=== PATIENT | female | born 1990 | race Caucasian/White ===

== ENCOUNTER 2017-02-04 12:19 | Inpatient (IN) | payer OTHER ==
[~2017-02-04] VITALS: Ht 165.1 cm; Wt 65.0 kg
[~2017-02-04 12:19] MED LIST: MELO7.5T5 PO; PAROXETINE PO
[2017-02-04] MEDS ORDERED: SODIUM CHLORIDE 0.9% 1000ML 1,000 ML IV STA ×2 (12:27)
[2017-02-04] MEDS ORDERED: ONDANSETRON INJ 2 MG/ML 2 ML VIAL IV STA ×2 (12:27→14:37)
[2017-02-04] MEDS ORDERED: KETOROLAC TROMETHAMINE 30 MG/ML VIAL IV STA (12:30)
[2017-02-04] MEDS ORDERED: RIZA5TAB10 PO (12:33)
[2017-02-04] MEDS ORDERED: AMT25 PO (12:33)
--- NOTE | 2017-02-04 12:44 | EMERGENCY ROOM VISIT NOTE ---
History Report prepared by Peter: Jing Bahena Under the Supervision of: Dr. Marivel Garcia M.D. First contact with patient: 12:26 Chief Complaint: VOMITING Stated Complaint: VOMITING History of Present Illness The patient is a 26 year old female who presents to the Emergency Room with complaints of constant vomiting beginning 24 hours ago. The patient states that she has been vomiting since yesterday. She reports that she had a crippling sharp abdominal pain yesterday before starting to vomit. She notes that her vomit is yellow with black bits in it and she has not been able to keep any food or liquids down. The patient complains of diarrhea, chills and diaphoresis. She denies any known fever, blood in the stool, and hematemesis. The patient states that no one around her has been sick but her mom works at a day care. She reports that she has a history of migraines and she does not think that there is a chance of . Source of History: patient Onset: 24 hours ago Position: other (global) Quality: other (vomiting) Timing: constant Associated Symptoms: + chills, + diaphoresis, + nausea, + diarrhea, No fevers Note: Pt denies blood in stool or vomit. Review of Systems See HPI for pertinent positives & negatives. A total of 10 systems reviewed and were otherwise negative. Past Medical & Surgical Medical Problems: (1) Ankylosing spondylitis lumbar region (2) No Known Active Medical Problems Family History Diabetes mellitus Heart disease Hypertension Social History Smoking Status: Never Smoker Smokeless Tobacco Use: No Drug Use: none Marital Status: single Occupation Status: employed Current/Historical Medications Scheduled Amitriptyline HCl (Amitriptyline HCl), 25 MG PO DAILY Scheduled PRN Rizatriptan Benzoate (Maxalt), 5 MG PO DAILY PRN for Migraine Allergies Coded Allergies: No Known Allergies (Unverified , 02/04/17) Physical Exam Vital Signs Date Time Temp Pulse Resp B/P (MAP) Pulse Ox O2 Delivery O2 Flow Rate FiO2 02/04/17 14:59 118 14 116/76 99 Room Air 02/04/17 13:38 98 20 107/79 98 Room Air 02/04/17 13:00 102 18 120/85 98 Room Air 02/04/17 12:58 108 02/04/17 12:21 36.9 131 20 128/80 94 Room Air 02/03/17 23:08 Room Air Physical Exam Vital signs reviewed. General: Well-appearing, in no significant distress. HEENT: No scleral icterus, PERRLA, neck supple. Atraumatic. Dry mucous membranes. Cardiovascular: Regular rate and rhythm, no extra sounds. Pulmonary: Clear to auscultation bilaterally, normal work of breathing. Abdomen: Soft, diffuse abdominal tenderness, no rebound or guarding, nondistended, positive bowel sounds. Musculoskeletal: Atraumatic, no peripheral edema. Neurologic: Patient awake alert and oriented x 3, full strength in all 4 extremities. Cranial nerves 2 through 12 grossly intact. Skin: Warm, dry, no rash Medical Decision & Procedures ER Provider Diagnostic Interpretation: Radiology results as stated below per my review and radiologist interpretation: PA CHEST RADIOGRAPH AND UPRIGHT AND SUPINE AP RADIOGRAPHS OF THE ABDOMEN FINDINGS: Lung volumes are normal. There is no consolidation to suggest pneumonia. No pneumothorax or pleural effusion is present. Cardiac size is normal. Mediastinal contours are normal. There is no free air. Several loops of mildly dilated small bowel are noted. There is possible small bowel wall thickening which is difficult to assess by radiography. IMPRESSION: 1. A few loops of mildly dilated small bowel with possible small bowel wall thickening which is difficult to assess by radiography. The findings could reflect a partial small bowel obstruction or enteritis. 2. No free air. 3. No acute cardiopulmonary findings. Electronically signed by: Eliseo Posadas M.D. 02/04/2017 1:41 PM Dictated Date/Time: 02/04/2017 1:[address] OF THE ABDOMEN AND PELVIS WITH CONTRAST FINDINGS: No pneumatosis, free air or portal venous gas is present. The liver, spleen, adrenal glands, right kidney and pancreas are normal. An 8 mm hypodense lesion within the midpole of the left kidney is too small to characterize. There is no biliary or pancreatic ductal dilatation. There is no hydronephrosis or hydroureter. No is made of multiple loops of fluid-filled mildly dilated small bowel with apparent transition point within the lower mid abdomen shown on image 284 of [id number] with small bowel feces sign. There is associated mesenteric infiltration and a small to moderate amount of ascites within the pelvis. Apparent wall thickening of the proximal ileum is noted which may reflect a nonspecific enteritis. Distal small bowel is decompressed. The appendix is normal. There are numerous small abdominal and pelvic lymph nodes. No enlarged lymph nodes are present. There is a 2 cm dominant follicle within the left ovary. Irregularity of the bilateral sacroiliac joints suggesting sacroiliitis. IMPRESSION: 1. Moderate grade partial small bowel obstruction with transition point within the lower mid abdomen, within the proximal ileum. The bowel obstruction could be due to a nonspecific enteritis which could be inflammatory or infectious in etiology. Possible terminal ileal wall thickening. The findings raise the possibility of an etiology such as Crohn's disease. Associated mesenteric infiltration and small to moderate pelvic ascites. 2. Findings suggestive of bilateral sacroiliitis. Electronically signed by: Eliseo Posadas M.D. 02/04/2017 3:05 PM Dictated Date/Time: 02/04/2017 2:49 PM Laboratory Results Test 02/04/17 12:50 Total Bilirubin 0.8 mg/dl (0.2-1) Direct Bilirubin 0.2 mg/dl (0-0.2) Aspartate Amino Transf (AST/SGOT) 12 U/L (15-37) Alanine Aminotransferase (ALT/SGPT) 29 U/L (12-78) Alkaline Phosphatase 75 U/L (45-117) Total Protein 9.0 gm/dl (6.4-8.2) Albumin 4.7 gm/dl (3.4-5.0) Lipase 84 U/L (73-393) Human Chorionic Gonadotropin, Qual NEG (NEG) Laboratory results per my review. Medications Administered Medications (Trade) Dose Ordered Sig/Alon Route Start Time Stop Time Status Last Admin Dose Admin Sodium Chloride 1,000 ml @ 999 mls/hr Q1H1M STAT IV 02/04/17 12:27 02/04/17 13:27 DC 02/04/17 13:04 999 MLS/HR Sodium Chloride 1,000 ml @ 200 mls/hr Q5H STAT IV 02/04/17 12:27 02/04/17 17:10 DC 02/04/17 13:04 200 MLS/HR Ondansetron HCl (Zofran Inj) 4 mg NOW STAT IV 02/04/17 12:27 02/04/17 12:29 DC 02/04/17 13:03 4 MG Ketorolac Tromethamine (Toradol Inj) 30 mg NOW STAT IV 02/04/17 12:30 02/04/17 12:31 DC 02/04/17 13:03 30 MG Morphine Sulfate (MoRPHine SULFATE INJ) 4 mg NOW STAT IV 02/04/17 14:37 02/04/17 14:38 DC 02/04/17 14:57 4 MG Ondansetron HCl (Zofran Inj) 4 mg NOW STAT IV 02/04/17 14:37 02/04/17 14:38 DC 02/04/17 14:56 4 MG ED Course 1226: Past medical records reviewed. The patient was evaluated in room C12B. A complete history and physical examination was performed. 1227: Zofran Inj 4mg IV, Sodium Chloride 1000 ml @ 200 mls/hr IV, Sodium Chloride 1000 ml @ 999 mls/hr IV. 1230: Toradol Inj 30mg IV. 1433: I reevaluated and updated the patient. She is having more nausea and pain. 1437: Zofran Inj 4mg IV, Morphine Sulfate 4mg IV. 1517: I reevaluated and updated the patient. 1519: I reviewed the patient's case with [place]bar[place] [facility] [place] will evaluate the patient for further management. 1536: Upon reevaluation, the patient is resting comfortably. I discussed laboratory and radiographic results with the patient. She verbalized agreement of the treatment plan. I spoke with [place]. Ibarra of the [facility] [place] [facility]. The patient will be evaluated for further management and care. Medical Decision Differential diagnosis: Etiologies such as gastroenteritis, food borne illness, infections, appendicitis , diverticulitis, inflammatory bowel disease, obstruction, GI bleed, biliary pathology, as well as others were entertained. Medication Reconciliation: I attest that I have personally reviewed the patient' s current medication list. This patient was evaluated and appeared to be in no significant distress. IV access was obtained and laboratory work was drawn. The patient was hydrated with normal saline solution. She was given IV Zofran and Toradol. Patient did require IV morphine for her pain. Abdominal x-ray series is concerning for a possible SBO. CT scan abdomen and pelvis was performed and is read as above. There is concerning for bowel obstruction. I did explain my findings to the patient and plan for evaluation by the hospitalist service. She is aware and agrees. Consults Time Called: 1513 Consulting Physician: Dr. Ibarra [place] [facility] Returned Call: [phone] I reviewed the patient's case with [place]. Ibar[place] of [facility] He will evaluate the patient for further management. Impression Primary Impression: Partial small bowel obstruction Scribe Attestation The scribe's documentation has been prepared under my direction and personally reviewed by me in its entirety. I confirm that the note above accurately reflects all work, treatment, procedures, and medical decision making performed by me. Departure Information Dispostion Being Evaluated By Hospitalist Referrals Wally Redman M.D. (PCP) Patient Instructions My [facility]
[2017-02-04 13:03] LABS: BASO % 0.1 %; BASO ABS # 0.01 K/uL (0-0.2); COMPLETE YES; IG% 0.2 %; LYMPH % 5.9 %; LYMPH ABS # 0.94 K/uL (1.2-3.4); MEAN CELL VOLUME 82.6 fL (80-100); MEAN CORPUSCULAR HEMOGLOBIN 28.3 pg (25-34); MEAN CORPUSCULAR HGB CONC 34.3 g/dl (32-36); MEAN PLATELET VOLUME 9.1 fL (7.4-10.4); MONO % 3.2 %; NEUT % 90.6 %; PLATELET COUNT 337 K/uL (130-400); RED BLOOD COUNT 5.33 M/uL (4.2-5.4); WHITE BLOOD COUNT 15.96 K/uL (4.8-10.8)
[2017-02-04 13:20] LABS: PREG INTERNAL NEGATIVE QC NEG CLEAR BACKGROUND; PREG INTERNAL POSITIVE QC POS CONTROL LINE
[2017-02-04 13:31] LABS: BUN/CREATININE RATIO 17.1 (10-20); CALCIUM 9.8 mg/dl (8.5-10.1); CREATININE 0.78 mg/dl (0.60-1.20); POTASSIUM 3.9 mmol/L (3.5-5.1)
--- NOTE | 2017-02-04 13:42 | DIAGNOSTIC IMAGING REPORT ---
PA CHEST RADIOGRAPH AND UPRIGHT AND SUPINE AP RADIOGRAPHS OF THE ABDOMEN CLINICAL HISTORY: Vomiting and abdominal pain. COMPARISON STUDY: Chest radiograph September 06, 2014. FINDINGS: Lung volumes are normal. There is no consolidation to suggest pneumonia. No pneumothorax or pleural effusion is present. Cardiac size is normal. Mediastinal contours are normal. There is no free air. Several loops of mildly dilated small bowel are noted. There is possible small bowel wall thickening which is difficult to assess by radiography. IMPRESSION: 1. A few loops of mildly dilated small bowel with possible small bowel wall thickening which is difficult to assess by radiography. The findings could reflect a partial small bowel obstruction or enteritis. 2. No free air. 3. No acute cardiopulmonary findings. Electronically signed by: Eliseo Posadas M.D. 02/04/2017 1:41 PM Dictated Date/Time: 02/04/2017 1:37 PM
[2017-02-04] MEDS ORDERED: OPTIRAY 320 IV PRN (14:15)
[2017-02-04] MEDS ORDERED: MoRPHine SULFATE 4 MG/ML 1 ML CARP\\VIAL IV STA (14:37)
--- NOTE | 2017-02-04 15:06 | DIAGNOSTIC IMAGING REPORT ---
CT OF THE ABDOMEN AND PELVIS WITH CONTRAST CLINICAL HISTORY: Vomiting and abdominal pain. COMPARISON STUDY: Abdominal series performed earlier today. TECHNIQUE: Following IV administration of 94 mL of [id number], axial images of the abdomen and pelvis were obtained from the lung bases to the proximal femurs. Images were reviewed in the axial, sagittal, and coronal planes. IV contrast was administered without complication. CT DOSE: 307.89 mGy.cm FINDINGS: No pneumatosis, free air or portal venous gas is present. The liver, spleen, adrenal glands, right kidney and pancreas are normal. An 8 mm hypodense lesion within the midpole of the left kidney is too small to characterize. There is no biliary or pancreatic ductal dilatation. There is no hydronephrosis or hydroureter. No is made of multiple loops of fluid-filled mildly dilated small bowel with apparent transition point within the lower mid abdomen shown on image 284 of 486 with small bowel feces sign. There is associated mesenteric infiltration and a small to moderate amount of ascites within the pelvis. Apparent wall thickening of the proximal ileum is noted which may reflect a nonspecific enteritis. Distal small bowel is decompressed. The appendix is normal. There are numerous small abdominal and pelvic lymph nodes. No enlarged lymph nodes are present. There is a 2 cm dominant follicle within the left ovary. Irregularity of the bilateral sacroiliac joints suggesting sacroiliitis. IMPRESSION: 1. Moderate grade partial small bowel obstruction with transition point within the lower mid abdomen, within the proximal ileum. The bowel obstruction could be due to a nonspecific enteritis which could be inflammatory or infectious in etiology. Possible terminal ileal wall thickening. The findings raise the possibility of an etiology such as Crohn's disease. Associated mesenteric infiltration and small to moderate pelvic ascites. 2. Findings suggestive of bilateral sacroiliitis. Electronically signed by: Eliseo Posadas M.D. 02/04/2017 3:05 PM Dictated Date/Time: 02/04/2017 2:49 PM
[2017-02-04] MEDS ORDERED: MoRPHine SULFATE 2 MG/ML CARP IV PRN (16:00)
[2017-02-04] MEDS ORDERED: RIZATRIPTAN BENZOATE 10 MG TAB PO PRN (16:00)
[2017-02-04] MEDS ORDERED: KETOROLAC TROMETHAMINE 30 MG/ML VIAL IV PRN (16:00)
[2017-02-04] MEDS ORDERED: ZOLPIDEM TARTRATE 5 MG TAB PO PRN (16:00)
[2017-02-04] MEDS ORDERED: ACETAMINOPHEN IV 100 ML IV PRN (16:00)
[2017-02-04] MEDS ORDERED: ACETAMINOPHEN 325 MG TAB PO PRN (16:00)
[2017-02-04 16:32] VITALS: O2SAT 97
[2017-02-04 16:56] VITALS: BP 114/70; PULSE 126; TEMP 37.1; Ht 165.1 cm; Wt 65.0 kg
[2017-02-04] MEDS ORDERED: PIPERACILL/TAZOBAC CONSULT ACTIVE PRN (17:30)
[2017-02-04] MEDS ORDERED: PIPERACILL/TAZOBAC IV 3.375 GM in DEXTROSE 5% 100ML IV ONE (17:30)
[2017-02-04] MEDS: NSS + 20MEQ KCL 1000ML 1,000 ML IV SCH (17:39)
[2017-02-04] MEDS ORDERED: PIPERACILL/TAZOBAC IV 3.375 GM in DEXTROSE 5% 100ML 100 ML IV SCH (18:00)
[2017-02-04] MEDS: RANITIDINE IV 50 MG in DEXTROSE 5% 100ML 100 ML IV SCH (18:45)
[2017-02-04] MEDS: ONDANSETRON INJ 2 MG/ML 2 ML VIAL IV PRN (18:46)
[2017-02-04] MEDS: MoRPHine SULFATE 4 MG/ML 1 ML CARP\\VIAL IV PRN (18:56)
--- NOTE | 2017-02-04 20:32 | History and Physical ---
History & Physical Date & Time of Service: Feb 04, 2017 at 20:21 Chief Complaint: Ankylosing Spondylitits Lumbar Region Primary Care Physician: Wally Redman M.D. History of Present Illness Source: patient The patient is a 26-year-old female who presents to the emergency department with persistent abdominal pain and vomiting that began about 24 hours prior to arrival. She is also had diarrhea, chills and sweats. She denies any recent travel or sick exposures. She has had symptoms off and on since she was young. She does have chronic low back pain. Family History Diabetes mellitus Heart disease Hypertension Social History Smoking Status: Never Smoker Smokeless Tobacco Use: No Alcohol Use: none Drug Use: none Marital Status: single Occupational Status: employed Allergies Coded Allergies: No Known Allergies (Unverified , 02/04/17) Home Medications Scheduled Amitriptyline HCl (Amitriptyline HCl), 25 MG PO DAILY Scheduled PRN Rizatriptan Benzoate (Maxalt), 5 MG PO DAILY PRN for Migraine Review of Systems The patient denies chest pain, palpitations, shortness of breath, cough, lower extremity swelling, vision change, hearing change, sore throat, weight change, blood in urine or stool, dysuria, urinary frequency or urgency, lightheadedness , dizziness, headache, memory loss, rash, abnormal bruising or bleeding, imbalance, focal or generalized weakness, numbness or tingling in arms or legs, neck pain, night sweats, or allergy symptoms. The review of systems is otherwise negative other than for that already noted above, and at least 10 systems have been reviewed. Physical Exam Vital Signs Date Time Temp Pulse Resp B/P (MAP) Pulse Ox O2 Delivery O2 Flow Rate FiO2 02/04/17 16:56 37.1 126 16 114/70 Room Air 02/04/17 16:40 Room Air 02/04/17 16:32 113 18 112/68 97 02/04/17 14:59 118 14 116/76 99 Room Air 02/04/17 13:38 98 20 107/79 98 Room Air 02/04/17 13:00 102 18 120/85 98 Room Air 02/04/17 12:58 108 02/04/17 12:21 36.9 131 20 128/80 94 Room Air The patient is awake, well-developed and adequately nourished, alert and oriented 3, normocephalic and atraumatic, lying in bed and in no acute distress. HEENT--PERRL, EOMI, mucous membranes and oropharynx dry. Neck--supple, no JVD or bruits, thyroid normal, trachea midline, no adenopathy. Heart--normal S1 and S2, no extra beats, no murmurs, rubs or gallops. Lungs--clear bilaterally with good air movement, no respiratory distress, no accessory muscle use. Abdomen--decreased bowel sounds and soft, generalized mild tenderness, nondistended, no hernias or masses, no organomegaly. Extremities--no cyanosis, clubbing or edema. There are good distal pulses b/l. Dermatologic--normal skin turgor, normal color, warm and dry, no abnormal lymph nodes, no rash. Neurologic--cranial nerves II through XII grossly intact, motor and sensory examination normal. Rheumatologic--normal range of motion, nontender, muscles and joints. Psychiatric--normal affect. Diagnostics Laboratory Results Results Past 24 Hours Test 02/04/17 12:50 02/04/17 18:45 Range/Units White Blood Count 15.96 4.8-10.8 K/uL Red Blood Count 5.33 4.2-5.4 M/uL Hemoglobin 15.1 12.0-16.0 g/dL Hematocrit 44.0 37-47 % Mean Corpuscular Volume 82.6 80-100 fL Mean Corpuscular Hemoglobin 28.3 25-34 pg Mean Corpuscular Hemoglobin Concent 34.3 32-36 g/dl Platelet Count 337 130-400 K/uL Mean Platelet Volume 9.1 7.4-10.4 fL Neutrophils (%) (Auto) 90.6 % Lymphocytes (%) (Auto) 5.9 % Monocytes (%) (Auto) 3.2 % Eosinophils (%) (Auto) 0.0 % Basophils (%) (Auto) 0.1 % Neutrophils # (Auto) 14.47 1.4-6.5 K/uL Lymphocytes # (Auto) 0.94 1.2-3.4 K/uL Monocytes # (Auto) 0.51 0.11-0.59 K/uL Eosinophils # (Auto) 0.00 0-0.5 K/uL Basophils # (Auto) 0.01 0-0.2 K/uL RDW Standard Deviation 38.6 36.4-46.3 fL RDW Coefficient of Variation 12.8 11.5-14.5 % Immature Granulocyte % (Auto) 0.2 % Immature Granulocyte # (Auto) 0.03 0.00-0.02 K/uL Sodium Level 141 136-145 mmol/L Potassium Level 3.9 3.5-5.1 mmol/L Chloride Level 105 98-107 mmol/L Carbon Dioxide Level 27 21-32 mmol/L Anion Gap 9.0 3-11 mmol/L Blood Urea Nitrogen 13 7-18 mg/dl Creatinine 0.78 0.60-1.20 mg/dl Est Creatinine Clear Calc Drug Dose 100.1 ml/min Estimated GFR () 123.3 Estimated GFR (Non- 106.4 BUN/Creatinine Ratio 17.1 10-20 Random Glucose 124 70-99 mg/dl Calcium Level 9.8 8.5-10.1 mg/dl Total Bilirubin 0.8 0.2-1 mg/dl Direct Bilirubin 0.2 0-0.2 mg/dl Aspartate Amino Transf (AST/SGOT) 12 15-37 U/L Alanine Aminotransferase (ALT/SGPT) 29 12-78 U/L Alkaline Phosphatase 75 45-117 U/L Total Protein 9.0 6.4-8.2 gm/dl Albumin 4.7 3.4-5.0 gm/dl Lipase 84 73-393 U/L Human Chorionic Gonadotropin, Qual NEG NEG Diagnostic Radiology Patient Name: SAÚL MENDIETA Unit Number: [id number] Dictated: 02/04/171336 Transcribed: 02/04/171336 BOB Printed Date/Time: [~ rep prt dt]/[~ rep prt tm] [~ rep ct labl] - [~ rep ct ivnm] [facility] [place] [address] Dictated: 02/04/171336 Transcribed: 02/04/171336 BOB Printed Date/Time: [~ rep prt dt]/[~ rep prt tm] [~ rep ct labl] - [~ rep ct ivnm] [~ rep ct add3]] PA CHEST RADIOGRAPH AND UPRIGHT AND SUPINE AP RADIOGRAPHS OF THE ABDOMEN CLINICAL HISTORY: Vomiting and abdominal pain. COMPARISON STUDY: Chest radiograph September 06, 2014. FINDINGS: Lung volumes are normal. There is no consolidation to suggest pneumonia. No pneumothorax or pleural effusion is present. Cardiac size is normal. Mediastinal contours are normal. There is no free air. Several loops of mildly dilated small bowel are noted. There is possible small bowel wall thickening which is difficult to assess by radiography. IMPRESSION: 1. A few loops of mildly dilated small bowel with possible small bowel wall thickening which is difficult to assess by radiography. The findings could reflect a partial small bowel obstruction or enteritis. 2. No free air. 3. No acute cardiopulmonary findings. Electronically signed by: Eliseo Posadas M.D. 02/04/2017 1:41 PM Dictated Date/Time: 02/04/2017 1:37 PM The status of this report is Signed. Draft = Not yet reviewed or approved by Radiologist. Signed = Reviewed and approved by Radiologist. <AttendingPhy></AttendingPhy> <FamilyPhy>Wally Redman M.D.</FamilyPhy > <PrimaryPhy>Wally Redman M.D.</PrimaryPhy> <UnitNumber>[id number]</ UnitNumber> <VisitNumber>[id number]</VisitNumber> <PatientName>SAÚL MENDIETA</ PatientName> <DateOfBirth>1990</DateOfBirth> <Location>[facility]</Location> < ServiceDate>02/04/17</ServiceDate> <MNE>ESINDI</MNE> <OrderingPhy>Marivel Gacria M.D.</OrderingPhy> <OrderingPhyMNE>f rep ord dr soto</OrderingPhyMNE> < DictatingPhyMNE>f rep dict dr soto</DictatingPhyMNE> <CCListMNE>f rep ct charles</ CCListMNE> <AdmittingPhyMNE>f pt admit dr soto</AdmittingPhyMNE> <AttendingPhyMNE >f pt attend dr soto</AttendingPhyMNE> <ConsultingPhyMNE>f pt consult dr soto</ConsultingPhyMNE> <FamilyPhyMNE>f pt fam dr soto</FamilyPhyMNE> <OtherPhyMNE>f pt other dr soto</OtherPhyMNE> < PrimaryPhyMNE>f pt prim care dr soto</PrimaryPhyMNE> <ReferringPhyMNE>f pt referring dr soto</ReferringPhyMNE> Patient Name: SAÚL MENDIETA Unit Number: [id number] Dictated: 02/04/171448 Transcribed: 02/04/171448 JA Printed Date/Time: [~ rep prt dt]/[~ rep prt tm] [~ rep ct labl] - [~ rep ct ivnm] [facility] Radiology Department [place], [place] [id number] Dictated: 02/04/171448 Transcribed: 02/04/171448 JA Printed Date/Time: [~ rep prt dt]/[~ rep prt tm] [~ rep ct labl] - [~ rep ct ivnm] CT OF THE ABDOMEN AND PELVIS WITH CONTRAST CLINICAL HISTORY: Vomiting and abdominal pain. COMPARISON STUDY: Abdominal series performed earlier today. TECHNIQUE: Following IV administration of 94 mL of [id number], axial images of the abdomen and pelvis were obtained from the lung bases to the proximal femurs. Images were reviewed in the axial, sagittal, and coronal planes. IV contrast was administered without complication. CT DOSE: 307.89 mGy.cm FINDINGS: No pneumatosis, free air or portal venous gas is present. The liver, spleen, adrenal glands, right kidney and pancreas are normal. An 8 mm hypodense lesion within the midpole of the left kidney is too small to characterize. There is no biliary or pancreatic ductal dilatation. There is no hydronephrosis or hydroureter. No is made of multiple loops of fluid-filled mildly dilated small bowel with apparent transition point within the lower mid abdomen shown on image 284 of 486 with small bowel feces sign. There is associated mesenteric infiltration and a small to moderate amount of ascites within the pelvis. Apparent wall thickening of the proximal ileum is noted which may reflect a nonspecific enteritis. Distal small bowel is decompressed. The appendix is normal. There are numerous small abdominal and pelvic lymph nodes. No enlarged lymph nodes are present. There is a 2 cm dominant follicle within the left ovary. Irregularity of the bilateral sacroiliac joints suggesting sacroiliitis. IMPRESSION: 1. Moderate grade partial small bowel obstruction with transition point within the lower mid abdomen, within the proximal ileum. The bowel obstruction could be due to a nonspecific enteritis which could be inflammatory or infectious in etiology. Possible terminal ileal wall thickening. The findings raise the possibility of an etiology such as Crohn's disease. Associated mesenteric infiltration and small to moderate pelvic ascites. 2. Findings suggestive of bilateral sacroiliitis. Electronically signed by: Eliseo Posadas M.D. 02/04/2017 3:05 PM Dictated Date/Time: 02/04/2017 2:49 PM The status of this report is Signed. Draft = Not yet reviewed or approved by Radiologist. Signed = Reviewed and approved by Radiologist. <AttendingPhy></AttendingPhy> <FamilyPhy>Wally Rdeman M.D.</FamilyPhy > <PrimaryPhy>Wally Redman M.D.</PrimaryPhy> <UnitNumber>[id number]</ UnitNumber> <VisitNumber>[id number]</VisitNumber> <PatientName>SAÚL MENDIETA</ PatientName> <DateOfBirth>1990</DateOfBirth> <Location>[facility]</Location> < ServiceDate>02/04/17</ServiceDate> <MNE>ESINDI</MNE> <OrderingPhy>Marivel Garcia M.D.</OrderingPhy> <OrderingPhyMNE>f rep ord dr soto</OrderingPhyMNE> < DictatingPhyMNE>f rep dict dr soto</DictatingPhyMNE> <CCListMNE>f rep ct charles</ CCListMNE> <AdmittingPhyMNE>f pt admit dr soto</AdmittingPhyMNE> <AttendingPhyMNE >f pt attend dr soto</AttendingPhyMNE> <ConsultingPhyMNE>f pt consult dr soto</ConsultingPhyMNE> <FamilyPhyMNE>f pt fam dr soto</FamilyPhyMNE> <OtherPhyMNE>f pt other dr soto</OtherPhyMNE> < PrimaryPhyMNE>f pt prim care dr soto</PrimaryPhyMNE> <ReferringPhyMNE>f pt referring dr soto</ReferringPhyMNE> Impression Assessment and Plan Partial small bowel obstruction/enteritis/possible Crohn's--patient be admitted to the medical surgical floor. She'll be placed on full liquid diet, normal saline with potassium chloride 20 mEq at 100 mils per hour, Zofran 4 mg IV every 6 hours when necessary, Protonix 40 mg IV daily, Toradol 30 mg IV every 6 hours when necessary, and morphine sulfate 2-4 mg IV every 2 hours when necessary. We'll consult gastroenterology Dr. Aggarwal. Ankylosing spondylitis--her CT did show active bilateral sacroiliitis, and she reports that she does have active generalized arthritis occurring when she's had intermittent bowel issues in the past. She has been seen by rheumatology in the past, but the doctor no longer in the area. We'll consult Dr. Ni from rheumatology. The patient has been on a number of different anti- inflammatories in the past without much benefit. She may be a candidate for Biologics, which would if started need to be coordinated with a possible Crohn' s diagnosis. Level of Care Med/Surg Advanced Directives Existing Advance Directive: No Existing Living Will: No Existing Power of Cost Recorder: No Resuscitation Status FULL RESUSCITATION VTE Prophylaxis VTE Risk Assessment Done? Y/N: Yes Risk Level: Moderate Given or contraindicated: SCD's Social Service Consult None Apply
[2017-02-04 20:33] LABS: MANUAL MICROSCOPIC REQUIRED? YES; URINE APPEARANCE CLEAR (CLEAR); URINE COLOR YELLOW; URINE NITRITE NEG (NEG); URINE PH 5.5 (4.5-7.5); URINE SPECIFIC GRAVITY 1.015 (1.000-1.030); UROBILINOGEN NEG (NEG)
[2017-02-04 20:36] LABS: REVIEW REQ? NO
[2017-02-04 20:39] LABS: URINE BILIRUBIN NEG (NEG)
[2017-02-04 20:43] LABS: URINE BACTERIA NEG (NEG); URINE RBC 0-4 /hpf (0-4); ZZUR CULT IF INDIC CLEAN CATCH NO
[2017-02-04] MEDS: PIPERACILL/TAZOBAC IV 3.375 GM in DEXTROSE 5% 100ML IV SCH (23:18)
[2017-02-04 23:21] VITALS: BP 111/64; PULSE 95; TEMP 36.8; O2SAT 98
[2017-02-05] MEDS: RANITIDINE IV 50 MG in DEXTROSE 5% 100ML 100 ML IV SCH ×3 (02:07→18:08)
[2017-02-05] MEDS: NSS + 20MEQ KCL 1000ML 1,000 ML IV SCH ×3 (02:08→23:42)
[2017-02-05] MEDS: MoRPHine SULFATE 4 MG/ML 1 ML CARP\\VIAL IV PRN ×7 (04:08→23:49)
[2017-02-05] MEDS: PIPERACILL/TAZOBAC IV 3.375 GM in DEXTROSE 5% 100ML IV SCH ×3 (07:31→23:46)
[2017-02-05 07:55] VITALS: BP 108/72; PULSE 83; TEMP 36.8; O2SAT 100
[2017-02-05 08:01] LABS: BASO % 0.3 %; BASO ABS # 0.03 K/uL (0-0.2); COMPLETE YES; EOS % 1.7 %; HEMATOCRIT 34.3 % (37-47); IG% 0.3 %; LYMPH % 25.3 %; LYMPH ABS # 2.37 K/uL (1.2-3.4); MEAN CELL VOLUME 84.3 fL (80-100); MEAN CORPUSCULAR HGB CONC 32.1 g/dl (32-36); MEAN PLATELET VOLUME 9.3 fL (7.4-10.4); MONO % 9.2 %; NEUT % 63.2 %; PLATELET COUNT 228 K/uL (130-400); RED BLOOD COUNT 4.07 M/uL (4.2-5.4); WHITE BLOOD COUNT 9.38 K/uL (4.8-10.8)
[2017-02-05 08:11] LABS: BLOOD UREA NITROGEN 9 mg/dl (7-18); CALCIUM 7.8 mg/dl (8.5-10.1); CARBON DIOXIDE 25 mmol/L (21-32); CHLORIDE 113 mmol/L (98-107); CREATININE 0.55 mg/dl (0.60-1.20); GLUCOSE 93 mg/dl (70-99); MAGNESIUM 2.3 mg/dl (1.8-2.4); POTASSIUM 3.9 mmol/L (3.5-5.1); SODIUM 144 mmol/L (136-145)
[2017-02-05] MEDS: AMITRIPTYLINE HCL 25 MG TAB PO SCH (09:25)
[2017-02-05] MEDS: ONDANSETRON INJ 2 MG/ML 2 ML VIAL IV PRN ×2 (09:25→18:08)
--- NOTE | 2017-02-05 10:39 | Gastrointestinal Consultation ---
Gastrointestinal Consultation Date of Consultation: Feb 05, 2017 Attending Physician: Dr. Ibarra Consulting Physician: Dr. Aggarwal/YOSELYN Sheikh Reason for Consultation: Questionable Crohn's disease History of Present Illness Patient is a 26 year old female with a history of ankylosing spondylosis presenting with symptoms of severe abdominal pain with associated nausea and vomiting as well as diarrhea beginning 48 hours ago per her report. She states she does have a history of chronic intermittent abdominal pain and diarrhea but has never undergone any prior formal GI evaluation of symptoms. She was previously following with Dr. 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 Currently, she rates her abdominal pain as 7/10 in intensity in the right lower quadrant with radiation into the right flank and back. No bowel movements since arrival. She is having mild nausea but no vomiting at present but states she is unable to tolerate her full liquids with reduced appetite. Laboratory testing on arrival demonstrated a leukocytosis of 15.96 without any electrolyte abnormalities or anemia. CT imaging was obtained and demonstrated "moderate grade partial small bowel obstruction" with nonspecific enteritis of either infectious of inflammatory etiology with possible terminal ileal thickening raising the question of possible Crohn's enteritis. She does use NSAIDs frequently due to multiple arthralgias. No reported rashes or eye pain/redness. Past Medical/Surgical History Medical Problems: (1) Partial small bowel obstruction Status: Acute Past Medical History: 1. Anxiety 2. Migraines 3. Concussion 4. URI 5. Varicella 6. Infectious mononucleosis Past Surgical History: Oral tooth extraction Family History Diabetes mellitus Heart disease Hypertension Negative for GI malignancy or IBD Social History Smoking Status: Never Smoker Alcohol Use: occasionally Drug Use: none Marital Status: single Occupation Status: employed Allergies Coded Allergies: No Known Allergies (Unverified , 02/04/17) Current Medications Home Meds and Scripts Medications Dose Route/Sig Max Daily Dose Days Date Category Amitriptyline HCl 25 Mg Tab 25 Mg PO DAILY 02/04/17 Reported Maxalt (Rizatriptan Benzoate) 5 Mg Tab 5 Mg PO DAILY PRN 02/04/17 Reported Review of Systems See HPI for pertinent positives & negatives. A total of 10 systems reviewed and were otherwise negative. Physical Exam Date Time Temp Pulse Resp B/P (MAP) Pulse Ox O2 Delivery O2 Flow Rate FiO2 02/05/17 07:55 36.8 83 16 108/72 (84) 100 Room Air 02/05/17 07:30 Room Air 02/04/17 23:21 36.8 95 14 111/64 (80) 98 Room Air 02/04/17 16:56 37.1 126 16 114/70 Room Air 02/04/17 16:40 Room Air 02/04/17 16:32 113 18 112/68 97 02/04/17 14:59 118 14 116/76 99 Room Air 02/04/17 13:38 98 20 107/79 98 Room Air 02/04/17 13:00 102 18 120/85 98 Room Air 02/04/17 12:58 108 02/04/17 12:21 36.9 131 20 128/80 94 Room Air General Appearance: WD/WN, no apparent distress Eyes: EOMI ENT: hearing grossly normal Neck: supple Respiratory/Chest: lungs clear, normal breath sounds, no respiratory distress Cardiovascular: regular rate, rhythm, no gallop, no murmur Abdomen: soft, + abnormal bowel sounds (hyperactive, high pitched), + tenderness (RLQ) Extremities: no pedal edema Neurologic/Psych: alert, normal mood/affect, oriented x 3 Skin: warm/dry Laboratory Results Last 24 Hours Test 02/04/17 12:50 02/04/17 18:45 02/04/17 21:18 02/05/17 06:30 White Blood Count 15.96 K/uL 9.38 K/uL Red Blood Count 5.33 M/uL 4.07 M/uL Hemoglobin 15.1 g/dL 11.0 g/dL Hematocrit 44.0 % 34.3 % Mean Corpuscular Volume 82.6 fL 84.3 fL Mean Corpuscular Hemoglobin 28.3 pg 27.0 pg Mean Corpuscular Hemoglobin Concent 34.3 g/dl 32.1 g/dl Platelet Count 337 K/uL 228 K/uL Mean Platelet Volume 9.1 fL 9.3 fL Neutrophils (%) (Auto) 90.6 % 63.2 % Lymphocytes (%) (Auto) 5.9 % 25.3 % Monocytes (%) (Auto) 3.2 % 9.2 % Eosinophils (%) (Auto) 0.0 % 1.7 % Basophils (%) (Auto) 0.1 % 0.3 % Neutrophils # (Auto) 14.47 K/uL 5.93 K/uL Lymphocytes # (Auto) 0.94 K/uL 2.37 K/uL Monocytes # (Auto) 0.51 K/uL 0.86 K/uL Eosinophils # (Auto) 0.00 K/uL 0.16 K/uL Basophils # (Auto) 0.01 K/uL 0.03 K/uL RDW Standard Deviation 38.6 fL 40.1 fL RDW Coefficient of Variation 12.8 % 13.1 % Immature Granulocyte % (Auto) 0.2 % 0.3 % Immature Granulocyte # (Auto) 0.03 K/uL 0.03 K/uL Sodium Level 141 mmol/L 144 mmol/L Potassium Level 3.9 mmol/L 3.9 mmol/L Chloride Level 105 mmol/L 113 mmol/L Carbon Dioxide Level 27 mmol/L 25 mmol/L Anion Gap 9.0 mmol/L 6.0 mmol/L Blood Urea Nitrogen 13 mg/dl 9 mg/dl Creatinine 0.78 mg/dl 0.55 mg/dl Est Creatinine Clear Calc Drug Dose 100.1 ml/min 141.9 ml/min Estimated GFR () 123.3 > 150.0 Estimated GFR (Non- 106.4 131.3 BUN/Creatinine Ratio 17.1 17.0 Random Glucose 124 mg/dl 93 mg/dl Calcium Level 9.8 mg/dl 7.8 mg/dl Total Bilirubin 0.8 mg/dl Direct Bilirubin 0.2 mg/dl Aspartate Amino Transf (AST/SGOT) 12 U/L Alanine Aminotransferase (ALT/SGPT) 29 U/L Alkaline Phosphatase 75 U/L Total Protein 9.0 gm/dl Albumin 4.7 gm/dl Lipase 84 U/L Human Chorionic Gonadotropin, Qual NEG Urine Color YELLOW Urine Appearance CLEAR Urine pH 5.5 Urine Specific [place] 1.015 Urine Protein TRACE Urine Glucose (UA) NEG Urine Ketones 3+ Urine Occult Blood TRACE Urine Nitrite NEG Urine Bilirubin NEG Urine Urobilinogen NEG Urine Leukocyte Esterase NEG Urine RBC 0-4 /hpf Urine WBC 1-5 /hpf Urine Epithelial Cells >30 /lpf Urine Bacteria NEG Bedside Glucose 99 mg/dl Magnesium Level 2.3 mg/dl Impression Patient is a 26 year old female with a history of ankylosing spondylitis presenting with RLQ abdominal pain, n/v/d and abnormal CT imaging suggestive of terminal ileitis, possibly inflammatory in nature. Plan 1. Clear liquid diet. 2. GoLytely split dose prep this evening. Encouraged patient to take Zofran 30- 60 minutes prior to initiation. 3. NPO after midnight except medications. 4. Colonoscopy tomorrow with Dr. Aggarwal for further evaluation. 5. Continue Zosyn IV as prescribed. 6. Continue supportive medical measures. 7. Additional recommendations pending results of testing. Thank you for allowing us to participate in the care of this pleasant patient. If you have any questions or concerns, please do not hesitate to contact us.a Agree with YOSELYN Sheikh as above Abd: Soft, Tender RLQ, ND, +BS Proceed with colonoscopy on 02/06/2017
--- NOTE | 2017-02-05 12:04 | Hospitalist Progress Note ---
Hospitalist Progress Note Date of Service Feb 05, 2017. (Audrey Nice ., PA-C) Subjective Pt evaluation today including: conversation w/ patient, physical exam, chart review, lab review, review of studies, review of inpatient medication list Voiding: no voiding problems, no incontinence Patient states she is currently comfortable. Mild diffuse abdominal pain- controlled w/ PRN medications. Last BM was prior to arrival and was yellow/ green in color. +flatus. Currently on clear liquid diet. Denies h/o Crohn's disease- never had a colonoscopy. + intermittent nausea. Patient denies any fever, chills, sweats, lightheadedness, dizziness, vision changes, CP, palpitations, edema, SOB, wheezing, cough, vomiting, diarrhea, urinary symptoms , melena, numbness/tingling, weakness, anxiety/depression, active bleeding, or new skin discoloration/changes. +muscle/joint pain- mild, attributed to lying in bed for prolong time. Patient has h/o diffuse inflammatory joint disease. Has followed w/ multiple hospice aide, but has not recently follow-up because medications did not help and were too expensive. (Audrey Nice ., PA-C) Medications Current Inpatient Medications Medications (Trade) Dose Ordered Sig/Alon Route Start Time Stop Time Status Last Admin Dose Admin Ioversol (Optiray 320) 125 ml UD PRN IV 02/04/17 14:15 02/08/17 14:14 Acetaminophen (Tylenol Tab) 650 mg Q4H PRN PO 02/04/17 16:00 03/06/17 15:59 02/04/17 17:18 650 MG Zolpidem Tartrate (Ambien Tab) 5 mg HSZ PRN PO 02/04/17 16:00 03/06/17 15:59 Amitriptyline HCl (Elavil Tab) 25 mg DAILY PO 02/05/17 09:00 03/07/17 08:59 02/05/17 09:25 25 MG Rizatriptan Benzoate (Maxalt Tab) 5 mg DAILY PRN PO 02/04/17 16:00 03/06/17 15:59 Ondansetron HCl (Zofran Inj) 4 mg Q6H PRN IV 02/04/17 16:00 03/06/17 15:59 02/05/17 09:25 4 MG Acetaminophen 100 ml @ 400 mls/hr Q8H PRN IV 02/04/17 16:00 03/06/17 15:59 Potassium Chloride/Sodium Chloride 1,000 ml @ 100 mls/hr Q10H IV 02/04/17 17:30 03/06/17 17:29 02/05/17 02:08 100 MLS/HR Ketorolac Tromethamine (Toradol Inj) 30 mg Q6H PRN IV 02/04/17 16:00 02/09/17 15:59 Morphine Sulfate (MoRPHine SULFATE INJ) 2 mg Q2H PRN IV 02/04/17 16:00 02/18/17 15:59 Morphine Sulfate (MoRPHine SULFATE INJ) 4 mg Q2H PRN IV 02/04/17 16:00 02/18/17 15:59 02/05/17 07:40 4 MG Ranitidine HCl 50 mg/Dextrose 102 ml @ 200 mls/hr Q8H IV 02/04/17 18:00 03/06/17 17:59 02/05/17 09:25 200 MLS/HR Piperacillin Sod/ Tazobactam Sod (Consult) 1 ea UD PRN N/A 02/04/17 17:30 03/06/17 17:29 Piperacillin Sod/ Tazobactam Sod 3.375 gm/Dextrose 115 ml @ 28.75 mls/ hr Q8H IV 02/05/17 00:00 02/15/17 00:00 02/05/17 07:31 28.75 MLS/HR Polyethylene Glycol/ Electrolytes (Golytely Soln) 8 dose TODAY@1800 PO 02/05/17 18:00 02/05/17 21:00 Polyethylene Glycol/ Electrolytes (Golytely Soln) 8 dose TODAY@0300 PO 02/06/17 03:00 02/06/17 06:00 (Audrey Nice PA-C) Objective Vital Signs Date Time Temp Pulse Resp B/P (MAP) Pulse Ox O2 Delivery O2 Flow Rate FiO2 02/05/17 07:55 36.8 83 16 108/72 (84) 100 Room Air 02/05/17 07:30 Room Air 02/04/17 23:21 36.8 95 14 111/64 (80) 98 Room Air 02/04/17 16:56 37.1 126 16 114/70 Room Air 02/04/17 16:40 Room Air 02/04/17 16:32 113 18 112/68 97 02/04/17 14:59 118 14 116/76 99 Room Air 02/04/17 13:38 98 20 107/79 98 Room Air 02/04/17 13:00 102 18 120/85 98 Room Air 02/04/17 12:58 108 02/04/17 12:21 36.9 131 20 128/80 94 Room Air (Audrey Nice, CHOCO-C) Physical Exam General Appearance: WD/WN, no apparent distress Eyes: normal inspection, PERRL ENT: hearing grossly normal Neck: supple Respiratory/Chest: lungs clear, normal breath sounds, no respiratory distress, no accessory muscle use Cardiovascular: regular rate, rhythm Abdomen: soft, + abnormal bowel sounds (hyperactive ), + tenderness (diffuse mild ttp, >RLQ ) Extremities: no pedal edema, no calf tenderness Neurologic/Psychiatric: alert, normal mood/affect, oriented x 3 Skin: normal color, warm/dry, no rash (Audrey Nice, PA-C) Laboratory Results Last 24 Hours Test 02/04/17 12:50 02/04/17 18:45 02/04/17 21:18 02/05/17 06:30 White Blood Count 15.96 K/uL 9.38 K/uL Red Blood Count 5.33 M/uL 4.07 M/uL Hemoglobin 15.1 g/dL 11.0 g/dL Hematocrit 44.0 % 34.3 % Mean Corpuscular Volume 82.6 fL 84.3 fL Mean Corpuscular Hemoglobin 28.3 pg 27.0 pg Mean Corpuscular Hemoglobin Concent 34.3 g/dl 32.1 g/dl Platelet Count 337 K/uL 228 K/uL Mean Platelet Volume 9.1 fL 9.3 fL Neutrophils (%) (Auto) 90.6 % 63.2 % Lymphocytes (%) (Auto) 5.9 % 25.3 % Monocytes (%) (Auto) 3.2 % 9.2 % Eosinophils (%) (Auto) 0.0 % 1.7 % Basophils (%) (Auto) 0.1 % 0.3 % Neutrophils # (Auto) 14.47 K/uL 5.93 K/uL Lymphocytes # (Auto) 0.94 K/uL 2.37 K/uL Monocytes # (Auto) 0.51 K/uL 0.86 K/uL Eosinophils # (Auto) 0.00 K/uL 0.16 K/uL Basophils # (Auto) 0.01 K/uL 0.03 K/uL RDW Standard Deviation 38.6 fL 40.1 fL RDW Coefficient of Variation 12.8 % 13.1 % Immature Granulocyte % (Auto) 0.2 % 0.3 % Immature Granulocyte # (Auto) 0.03 K/uL 0.03 K/uL Sodium Level 141 mmol/L 144 mmol/L Potassium Level 3.9 mmol/L 3.9 mmol/L Chloride Level 105 mmol/L 113 mmol/L Carbon Dioxide Level 27 mmol/L 25 mmol/L Anion Gap 9.0 mmol/L 6.0 mmol/L Blood Urea Nitrogen 13 mg/dl 9 mg/dl Creatinine 0.78 mg/dl 0.55 mg/dl Est Creatinine Clear Calc Drug Dose 100.1 ml/min 141.9 ml/min Estimated GFR () 123.3 > 150.0 Estimated GFR (Non- 106.4 131.3 BUN/Creatinine Ratio 17.1 17.0 Random Glucose 124 mg/dl 93 mg/dl Calcium Level 9.8 mg/dl 7.8 mg/dl Total Bilirubin 0.8 mg/dl Direct Bilirubin 0.2 mg/dl Aspartate Amino Transf (AST/SGOT) 12 U/L Alanine Aminotransferase (ALT/SGPT) 29 U/L Alkaline Phosphatase 75 U/L Total Protein 9.0 gm/dl Albumin 4.7 gm/dl Lipase 84 U/L Human Chorionic Gonadotropin, Qual NEG Urine Color YELLOW Urine Appearance CLEAR Urine pH 5.5 Urine Specific [place] 1.015 Urine Protein TRACE Urine Glucose (UA) NEG Urine Ketones 3+ Urine Occult Blood TRACE Urine Nitrite NEG Urine Bilirubin NEG Urine Urobilinogen NEG Urine Leukocyte Esterase NEG Urine RBC 0-4 /hpf Urine WBC 1-5 /hpf Urine Epithelial Cells >30 /lpf Urine Bacteria NEG Bedside Glucose 99 mg/dl Magnesium Level 2.3 mg/dl (Audrey Nice, VERNELLC) Assessment and Plan The patient is a 26-year-old female who presents to the emergency department with persistent abdominal pain and vomiting that began about 24 hours prior to arrival. She is also had diarrhea, chills and sweats. She denies any recent travel or sick exposures. She has had symptoms off and on since she was young. She does have chronic low back pain. Partial small bowel obstruction/enteritis/possible Crohn's: - Admit to med/surg - Clear liquid diet, NPO after midnight except meds - IV Zosyn - IV NSS + KCL 20 mEq @ 100 ml/hr - Zofran 4 mg IV q6 hrs PRN and IV Zantac - Toradol 30 mg IV q6 hrs PRN, Morphine sulfate 2-4 mg IV q2 hrs PRN, Tylenol 650 mg q4 hrs PRN - Consulted GI, appreciate recommendations -- GoLytely split dose prep this evening and Colonoscopy on 02/06 w/ Case - Check iron panel Ankylosing spondylitis- CT did show active bilateral sacroiliitis- multiple anti -inflammatories in past w/out benefit: - Consult Rheumatology, appreciate recommendations- followed w/ Dr. Berrios in that past - Check ESR and CRP Migraines: Amitriptyline 25 mg daily, and Maxalt 5 mg PRN DVT Prophylaxis: Ambulation GI Prophylaxis: IV Zantac Code Status: LEVEL I, FULL Dispo: Discharge to home when medically stable- no discharge needs anticipated (Audrey Nice, MAYA) Reviewed: Pt Seen/Exam by Me (Hedy Rebolledo MD) History Physician Lime Supervisor Supervision Note: I interviewed and examined the patient. Discussed with CHOCO Nice and agree with findings and plan as documented in the note. Any exceptions or clarifications are listed here: Pt has had GI issues for 10 years but never this bad. SHe has had SI joint pain daily for many years and gets flares of joint pain and swelling in bilat knees, elbows sometimes lock up, no other joint pains. No h/o uveitis. Mom with h/o hypothyroidism, Dad with HTN and HL but no other autoimmune disorders in family. SHe was previously treated with naproxen and then Mobic for , but no biologics or anything else. Currently doing prep for colonoscopy and it is causing her to be nauseated but no vomiting. Vitals reviewed NAD, AAOx3 HEENT anicteric sclerae, no cervical ZACHARY, neck supple RRR no mgr CTAB no wcr ABd +BS, soft, +TTP suprapubic and periumbilical region w/o guarding or rebound Ext: no TTP over shoulders, elbows, hands, fingers, hips, knees, ankles,toes, no joint effusions, FROM, gait not tested SKin: arms with diffuse keratosis pilaris, no malar rash 26 yo female with h/o ankylosing spondylitis, migraine with aura, here with PSBO and possible terminal ileitis. -prepping for colonoscopy, may have Crohn's -pain control -antiemetics -awaiting Rheum input -Appreciate GI input -check TSH as well given +FH and other autoimmune disorders -protein in UA and elevated Total protein--> repeat UA and Tprot when hydrated Documented By: Hedy Rebolledo (Hedy Rebolledo MD)
[2017-02-05 14:25] LABS: FERRITIN 75.4 ng/ml (8.0-388.0)
[2017-02-05 15:08] VITALS: BP 101/66; PULSE 90; TEMP 36.8; O2SAT 98
[2017-02-05] MEDS ORDERED: LAVAGE SOLUTION 4000ML PO SCH (18:00)
[2017-02-05 22:48] VITALS: BP 107/69; PULSE 80; TEMP 36.7; O2SAT 99
[2017-02-06] MEDS: RANITIDINE IV 50 MG in DEXTROSE 5% 100ML 100 ML IV SCH ×3 (01:27→18:06)
[2017-02-06] MEDS ORDERED: LAVAGE SOLUTION 4000ML PO SCH (03:00)
[2017-02-06 06:10] LABS: BASO % 0.3 %; BASO ABS # 0.02 K/uL (0-0.2); COMPLETE YES; EOS % 4.3 %; HEMATOCRIT 34.1 % (37-47); IG% 0.1 %; LYMPH % 33.7 %; LYMPH ABS # 2.29 K/uL (1.2-3.4); MEAN CELL VOLUME 85.5 fL (80-100); MEAN CORPUSCULAR HEMOGLOBIN 27.1 pg (25-34); MEAN CORPUSCULAR HGB CONC 31.7 g/dl (32-36); MEAN PLATELET VOLUME 9.5 fL (7.4-10.4); MONO % 8.2 %; NEUT % 53.4 %; PLATELET COUNT 215 K/uL (130-400); RED BLOOD COUNT 3.99 M/uL (4.2-5.4)
[2017-02-06 06:49] LABS: BLOOD UREA NITROGEN 3 mg/dl (7-18); BUN/CREATININE RATIO 5.6 (10-20); CARBON DIOXIDE 22 mmol/L (21-32); CHLORIDE 112 mmol/L (98-107); CREATININE 0.53 mg/dl (0.60-1.20); GLUCOSE 87 mg/dl (70-99); MAGNESIUM 2.1 mg/dl (1.8-2.4); POTASSIUM 3.8 mmol/L (3.5-5.1); SODIUM 145 mmol/L (136-145)
--- NOTE | 2017-02-06 06:55 | Rheumatology Consultation ---
Rheumatology Consultation Date of Consultation: Feb 06, 2017. History of Present Illness Ms. Natarajan was admitted on 02/04/17 for further treatment of small bowel obstruction and evidence of inflammation in her colon on CT imaging. She has ankylosing spondylitis and was last seen by me in December 2015. At that time, she was maintained on sulfasalazine. She has been lost to follow-up and stopped sulfasalazine due to lack of efficacy and cost of lab monitoring. She continued to have SI joint, knee and elbow pain but recently developed intermittent abdominal pain. She presented to the ED after 24 hours of worsening abdominal pain associated with nausea and vomiting. She is scheduled to undergo a colonoscopy today. Past Medical/Surgical History HLA B27+ ankylosing spondylitis Anxiety Migraines Social History Smoking Status: Never Smoker History of Alcohol Use: Yes (On occasion) Drug Use: none Marital Status: single Occupation Status: employed Review of Systems Constitutional: No fever, No chills, No sweats, No weight loss Eyes: + problem reported (dry eyes), No worsening of vision, No eye pain Respiratory: No cough, No shortness of breath, No dyspnea on exertion Cardiac: No chest pain, No orthopnea, No edema Abdomen: + pain, + nausea, + vomiting, + diarrhea Musculoskeletal: + joint pain Skin: No rash Allergies Coded Allergies: No Known Allergies (Unverified , 02/04/17) Medications Current Inpatient Medications Medications (Trade) Dose Ordered Sig/Alon Route Start Time Stop Time Status Last Admin Dose Admin Ioversol (Optiray 320) 125 ml UD PRN IV 02/04/17 14:15 02/08/17 14:14 Acetaminophen (Tylenol Tab) 650 mg Q4H PRN PO 02/04/17 16:00 03/06/17 15:59 02/04/17 17:18 650 MG Zolpidem Tartrate (Ambien Tab) 5 mg HSZ PRN PO 02/04/17 16:00 03/06/17 15:59 Amitriptyline HCl (Elavil Tab) 25 mg DAILY PO 02/05/17 09:00 03/07/17 08:59 02/05/17 09:25 25 MG Rizatriptan Benzoate (Maxalt Tab) 5 mg DAILY PRN PO 02/04/17 16:00 03/06/17 15:59 Ondansetron HCl (Zofran Inj) 4 mg Q6H PRN IV 02/04/17 16:00 03/06/17 15:59 02/05/17 18:08 4 MG Acetaminophen 100 ml @ 400 mls/hr Q8H PRN IV 02/04/17 16:00 03/06/17 15:59 Potassium Chloride/Sodium Chloride 1,000 ml @ 100 mls/hr Q10H IV 02/04/17 17:30 03/06/17 17:29 02/05/17 23:42 100 MLS/HR Ketorolac Tromethamine (Toradol Inj) 30 mg Q6H PRN IV 02/04/17 16:00 02/09/17 15:59 Morphine Sulfate (MoRPHine SULFATE INJ) 2 mg Q2H PRN IV 02/04/17 16:00 02/18/17 15:59 Morphine Sulfate (MoRPHine SULFATE INJ) 4 mg Q2H PRN IV 02/04/17 16:00 02/18/17 15:59 02/05/17 23:49 4 MG Ranitidine HCl 50 mg/Dextrose 102 ml @ 200 mls/hr Q8H IV 02/04/17 18:00 03/06/17 17:59 02/06/17 01:27 200 MLS/HR Piperacillin Sod/ Tazobactam Sod (Consult) 1 ea UD PRN N/A 02/04/17 17:30 03/06/17 17:29 Piperacillin Sod/ Tazobactam Sod 3.375 gm/Dextrose 115 ml @ 28.75 mls/ hr Q8H IV 02/05/17 00:00 02/15/17 00:00 02/05/17 23:46 28.75 MLS/HR Physical Exam Date Time Temp Pulse Resp B/P (MAP) Pulse Ox O2 Delivery O2 Flow Rate FiO2 02/05/17 23:50 Room Air 02/05/17 22:48 36.7 80 14 107/69 (82) 99 Room Air 02/05/17 15:30 Room Air 02/05/17 15:08 36.8 90 16 101/66 (78) 98 Room Air 02/05/17 07:55 36.8 83 16 108/72 (84) 100 Room Air 02/05/17 07:30 Room Air Eyes: bilateral eyes normal inspection, bilateral eyes EOMI ENT: normal ENT inspection Neck: no adenopathy Respiratory: lungs clear, normal breath sounds, no respiratory distress, no accessory muscle use Cardiovascular: regular rate, rhythm, no edema Abdomen: normal bowel sounds, soft, + tenderness Musculoskeletal: Tender joints: knees, elbows, SI joints Swollen joints: none Neurologic/Psychiatric: alert, normal mood/affect, oriented x 3 Skin: normal color, warm/dry, no rash Laboratory Results Last 24 Hours Test 02/05/17 12:29 02/05/17 19:53 02/06/17 05:27 Erythrocyte Sedimentation Rate 2 mm/hr Iron Level 60 mcg/dl Total Iron Binding Capacity 215 mcg/dl Transferrin 169 mg/dl Transferrin % Saturation 25 % Ferritin 75.4 ng/ml Thyroid Stimulating Hormone (TSH) 1.330 uIu/ml Stool Occult Blood NEGATIVE White Blood Count 6.80 K/uL Red Blood Count 3.99 M/uL Hemoglobin 10.8 g/dL Hematocrit 34.1 % Mean Corpuscular Volume 85.5 fL Mean Corpuscular Hemoglobin 27.1 pg Mean Corpuscular Hemoglobin Concent 31.7 g/dl Platelet Count 215 K/uL Mean Platelet Volume 9.5 fL Neutrophils (%) (Auto) 53.4 % Lymphocytes (%) (Auto) 33.7 % Monocytes (%) (Auto) 8.2 % Eosinophils (%) (Auto) 4.3 % Basophils (%) (Auto) 0.3 % Neutrophils # (Auto) 3.63 K/uL Lymphocytes # (Auto) 2.29 K/uL Monocytes # (Auto) 0.56 K/uL Eosinophils # (Auto) 0.29 K/uL Basophils # (Auto) 0.02 K/uL RDW Standard Deviation 40.7 fL RDW Coefficient of Variation 13.0 % Immature Granulocyte % (Auto) 0.1 % Immature Granulocyte # (Auto) 0.01 K/uL Assessment & Plan Assessment & Plan: 26 year old woman with ankylosing spondylitis now with gastrointestinal symptoms and imaging suggestive of inflammatory bowel disease. Active sacroiliitis also noted on imaging. She denies any inflammatory eye disease. She failed NSAIDs and DMARD therapy. She would benefit from anti TNF therapy such as Remicade or Humira. Her GI involvement may influence which agent would be best suited to treat her systemic disease. I discussed the risks, benefits, and use of anti-TNF medications with the patient. The patient would prefer to follow with Dr. Ni in order to keep all her care at [facility]. Plan 1. Colonoscopy today 2. In anticipation of biologic therapy, consider checking hepatitis B, C, and Quantiferon TB gold during this admission. 3. Schedule follow-up with rheumatology (Dr. Ni) 1-2 weeks after discharge. I would also be happy to see the patient in outpatient follow-up. Thank you for allowing rheumatology to participate in the care of Ms. Natarajan
[2017-02-06] MEDS: MoRPHine SULFATE 4 MG/ML 1 ML CARP\\VIAL IV PRN ×5 (07:32→21:11)
[2017-02-06] MEDS: PIPERACILL/TAZOBAC IV 3.375 GM in DEXTROSE 5% 100ML IV SCH ×3 (07:32→23:47)
[2017-02-06 07:56] VITALS: BP 105/71; PULSE 84; TEMP 36.8; O2SAT 98
[2017-02-06] MEDS: NSS + 20MEQ KCL 1000ML 1,000 ML IV SCH ×2 (09:42→19:24)
[2017-02-06] MEDS: AMITRIPTYLINE HCL 25 MG TAB PO SCH (10:05)
--- NOTE | 2017-02-06 11:04 | Hospitalist Progress Note ---
Hospitalist Progress Note Date of Service Feb 06, 2017. (Audrey Nice ., PA-C) Subjective Pt evaluation today including: conversation w/ patient, physical exam, chart review, lab review, review of inpatient medication list Voiding: no voiding problems, no incontinence Patient states she is feeling well. Tolerated prep for colonoscopy last evening OK. Currently NPO pending colonoscopy this afternoon- advance diet pending procedure findings and GI recommendations. +diffuse abdominal pain- improved since admission. +body aches/joint pain. Admits to one dark tarry stool at the beginning of prep- Hemoccult negative. Patient denies any fever, chills, sweats , lightheadedness, dizziness, vision changes, CP, palpitations, edema, SOB, wheezing, cough, abdominal pain, nausea, vomiting, diarrhea, urinary symptoms, numbness/tingling, weakness, muscle pain, anxiety/depression, active bleeding, or new skin discoloration/changes. (Audrey Nice ., PA-C) Medications Current Inpatient Medications Medications (Trade) Dose Ordered Sig/Alon Route Start Time Stop Time Status Last Admin Dose Admin Ioversol (Optiray 320) 125 ml UD PRN IV 02/04/17 14:15 02/08/17 14:14 Acetaminophen (Tylenol Tab) 650 mg Q4H PRN PO 02/04/17 16:00 03/06/17 15:59 02/04/17 17:18 650 MG Zolpidem Tartrate (Ambien Tab) 5 mg HSZ PRN PO 02/04/17 16:00 03/06/17 15:59 Amitriptyline HCl (Elavil Tab) 25 mg DAILY PO 02/05/17 09:00 03/07/17 08:59 02/06/17 10:05 25 MG Rizatriptan Benzoate (Maxalt Tab) 5 mg DAILY PRN PO 02/04/17 16:00 03/06/17 15:59 Ondansetron HCl (Zofran Inj) 4 mg Q6H PRN IV 02/04/17 16:00 03/06/17 15:59 02/05/17 18:08 4 MG Acetaminophen 100 ml @ 400 mls/hr Q8H PRN IV 02/04/17 16:00 03/06/17 15:59 Potassium Chloride/Sodium Chloride 1,000 ml @ 100 mls/hr Q10H IV 02/04/17 17:30 03/06/17 17:29 02/06/17 09:42 100 MLS/HR Ketorolac Tromethamine (Toradol Inj) 30 mg Q6H PRN IV 02/04/17 16:00 02/09/17 15:59 Morphine Sulfate (MoRPHine SULFATE INJ) 2 mg Q2H PRN IV 02/04/17 16:00 02/18/17 15:59 Morphine Sulfate (MoRPHine SULFATE INJ) 4 mg Q2H PRN IV 02/04/17 16:00 02/18/17 15:59 02/06/17 09:42 4 MG Ranitidine HCl 50 mg/Dextrose 102 ml @ 200 mls/hr Q8H IV 02/04/17 18:00 03/06/17 17:59 02/06/17 10:07 200 MLS/HR Piperacillin Sod/ Tazobactam Sod (Consult) 1 ea UD PRN N/A 02/04/17 17:30 03/06/17 17:29 Piperacillin Sod/ Tazobactam Sod 3.375 gm/Dextrose 115 ml @ 28.75 mls/ hr Q8H IV 02/05/17 00:00 02/15/17 00:00 02/06/17 07:32 28.75 MLS/HR (Audrey Nice ., PA-C) Objective Vital Signs Date Time Temp Pulse Resp B/P (MAP) Pulse Ox O2 Delivery O2 Flow Rate FiO2 02/06/17 07:56 36.8 84 16 105/71 (82) 98 Room Air 02/05/17 23:50 Room Air 02/05/17 22:48 36.7 80 14 107/69 (82) 99 Room Air 02/05/17 15:30 Room Air 02/05/17 15:08 36.8 90 16 101/66 (78) 98 Room Air (Audrey Nice, PA-C) Physical Exam General Appearance: no apparent distress Eyes: normal inspection, PERRL ENT: hearing grossly normal Neck: supple Respiratory/Chest: lungs clear, no respiratory distress, no accessory muscle use Cardiovascular: regular rate, rhythm Abdomen: normal bowel sounds, soft, + tenderness (diffuse mild ttp ) Extremities: no pedal edema, no calf tenderness Neurologic/Psychiatric: alert, normal mood/affect, oriented x 3 Skin: normal color, warm/dry, no rash (Audrey Nice ., VERNELLC) Laboratory Results Last 24 Hours Test 02/05/17 12:29 02/05/17 19:53 02/06/17 05:27 Erythrocyte Sedimentation Rate 2 mm/hr Iron Level 60 mcg/dl Total Iron Binding Capacity 215 mcg/dl Transferrin 169 mg/dl Transferrin % Saturation 25 % Ferritin 75.4 ng/ml Thyroid Stimulating Hormone (TSH) 1.330 uIu/ml Stool Occult Blood NEGATIVE White Blood Count 6.80 K/uL Red Blood Count 3.99 M/uL Hemoglobin 10.8 g/dL Hematocrit 34.1 % Mean Corpuscular Volume 85.5 fL Mean Corpuscular Hemoglobin 27.1 pg Mean Corpuscular Hemoglobin Concent 31.7 g/dl Platelet Count 215 K/uL Mean Platelet Volume 9.5 fL Neutrophils (%) (Auto) 53.4 % Lymphocytes (%) (Auto) 33.7 % Monocytes (%) (Auto) 8.2 % Eosinophils (%) (Auto) 4.3 % Basophils (%) (Auto) 0.3 % Neutrophils # (Auto) 3.63 K/uL Lymphocytes # (Auto) 2.29 K/uL Monocytes # (Auto) 0.56 K/uL Eosinophils # (Auto) 0.29 K/uL Basophils # (Auto) 0.02 K/uL RDW Standard Deviation 40.7 fL RDW Coefficient of Variation 13.0 % Immature Granulocyte % (Auto) 0.1 % Immature Granulocyte # (Auto) 0.01 K/uL Sodium Level 145 mmol/L Potassium Level 3.8 mmol/L Chloride Level 112 mmol/L Carbon Dioxide Level 22 mmol/L Anion Gap 11.0 mmol/L Blood Urea Nitrogen 3 mg/dl Creatinine 0.53 mg/dl Est Creatinine Clear Calc Drug Dose 147.3 ml/min Estimated GFR () > 150.0 Estimated GFR (Non- 132.9 BUN/Creatinine Ratio 5.6 Random Glucose 87 mg/dl Calcium Level 8.0 mg/dl Magnesium Level 2.1 mg/dl (Audrey Nice ., PA-C) Assessment and Plan The patient is a 26-year-old female who presents to the emergency department with persistent abdominal pain and vomiting that began about 24 hours prior to arrival. She is also had diarrhea, chills and sweats. She denies any recent travel or sick exposures. She has had symptoms off and on since she was young. She does have chronic low back pain. Partial small bowel obstruction/enteritis/possible Crohn's: - Admit to med/surg - IV Zosyn (started on 02/04) - IV NSS + KCL 20 mEq @ 100 ml/hr - Zofran 4 mg IV q6 hrs PRN and IV Zantac - Toradol 30 mg IV q6 hrs PRN, Morphine sulfate 2-4 mg IV q2 hrs PRN, Tylenol 650 mg q4 hrs PRN - Consulted GI, appreciate recommendations -- Colonoscopy on 02/06 w/ Dr. Aggarwal - Low hgb- iron panel reviewed, TSH WNL, stool Hemoccult negative Ankylosing spondylitis- CT did show active bilateral sacroiliitis- multiple anti -inflammatories in past w/out benefit: - Consult Rheumatology, appreciate recommendations- followed w/ Dr. You in that past -- Check Hepatitis B, C, and Quantiferon TB for possible initiation of biological agents -- f/u w/ Dr. Ni in 1-2 weeks - ESR- WNL and CRP pending Migraines: Amitriptyline 25 mg daily, and Maxalt 5 mg PRN DVT Prophylaxis: Ambulation GI Prophylaxis: IV Zantac Code Status: LEVEL I, FULL Dispo: Discharge to home when medically stable- hopefully within the next 1-2 days- no discharge needs anticipated (Audrey Nice, MAYA) Reviewed: Pt Seen/Exam by Me (Hedy Rebolledo MD) History Physician Grain Unloader Supervision Note: I interviewed and examined the patient. Discussed with CHOCO Nice and agree with findings and plan as documented in the note. Any exceptions or clarifications are listed here: Had colonoscopy, having a lot of SI joint pain now. FOund Crohn's on scope. Discussed starting steroids and eventually biologics. Still with some abd pain Vitals reviewed NAD, AAOx3 HEENT anicteric sclerae, no cervical ZACHARY, neck supple RRR no mgr CTAB no wcr ABd +BS, soft, +TTP suprapubic and periumbilical region w/o guarding or rebound Ext: no TTP over shoulders, elbows, hands, fingers, hips, knees, ankles,toes, no joint effusions, FROM, gait not tested SKin: arms with diffuse keratosis pilaris, no malar rash 26 yo female with h/o ankylosing spondylitis, migraine with aura, here with PSBO and Crohn's ileitis-new diagnosis -pain control -appreciate Rheum input-f/u as outpt -Appreciate GI input-f/u this week-he will arrange -protein in UA and elevated Total protein--> repeat UA and Tprot when hydrated -start Budesonide 9mg po daily x 8 weeks, may need PPI if has UGI issues with steroids Documented By: Hedy Rebolledo (Hedy Rebolledo MD)
--- NOTE | 2017-02-06 12:45 | Gastroenterology Progress Note ---
Progress Note Date of Service: Feb 06, 2017 Subjective Pt evaluation today including: conversation w/ patient, physical exam, chart review, lab review, review of studies Patient still with RLQ abdominal pain. Bowel prep went well. No other complaints Medications Current Inpatient Medications Medications (Trade) Dose Ordered Sig/Alon Route Start Time Stop Time Status Last Admin Dose Admin Ioversol (Optiray 320) 125 ml UD PRN IV 02/04/17 14:15 02/08/17 14:14 Acetaminophen (Tylenol Tab) 650 mg Q4H PRN PO 02/04/17 16:00 03/06/17 15:59 02/04/17 17:18 650 MG Zolpidem Tartrate (Ambien Tab) 5 mg HSZ PRN PO 02/04/17 16:00 03/06/17 15:59 Amitriptyline HCl (Elavil Tab) 25 mg DAILY PO 02/05/17 09:00 03/07/17 08:59 02/06/17 10:05 25 MG Rizatriptan Benzoate (Maxalt Tab) 5 mg DAILY PRN PO 02/04/17 16:00 03/06/17 15:59 Ondansetron HCl (Zofran Inj) 4 mg Q6H PRN IV 02/04/17 16:00 03/06/17 15:59 02/05/17 18:08 4 MG Acetaminophen 100 ml @ 400 mls/hr Q8H PRN IV 02/04/17 16:00 03/06/17 15:59 Potassium Chloride/Sodium Chloride 1,000 ml @ 100 mls/hr Q10H IV 02/04/17 17:30 03/06/17 17:29 02/06/17 09:42 100 MLS/HR Ketorolac Tromethamine (Toradol Inj) 30 mg Q6H PRN IV 02/04/17 16:00 02/09/17 15:59 Morphine Sulfate (MoRPHine SULFATE INJ) 2 mg Q2H PRN IV 02/04/17 16:00 02/18/17 15:59 Morphine Sulfate (MoRPHine SULFATE INJ) 4 mg Q2H PRN IV 02/04/17 16:00 02/18/17 15:59 02/06/17 09:42 4 MG Ranitidine HCl 50 mg/Dextrose 102 ml @ 200 mls/hr Q8H IV 02/04/17 18:00 03/06/17 17:59 02/06/17 10:07 200 MLS/HR Piperacillin Sod/ Tazobactam Sod (Consult) 1 ea UD PRN N/A 02/04/17 17:30 03/06/17 17:29 Piperacillin Sod/ Tazobactam Sod 3.375 gm/Dextrose 115 ml @ 28.75 mls/ hr Q8H IV 02/05/17 00:00 02/15/17 00:00 02/06/17 07:32 28.75 MLS/HR Objective Vital Signs Date Time Temp Pulse Resp B/P (MAP) Pulse Ox O2 Delivery O2 Flow Rate FiO2 02/06/17 12:23 37.6 89 20 118/74 (89) 100 Room Air 02/06/17 07:56 36.8 84 16 105/71 (82) 98 Room Air 02/06/17 07:30 Room Air 02/05/17 23:50 Room Air 02/05/17 22:48 36.7 80 14 107/69 (82) 99 Room Air 02/05/17 15:30 Room Air 02/05/17 15:08 36.8 90 16 101/66 (78) 98 Room Air Physical Exam General Appearance: WD/WN, no apparent distress Abdomen: soft, + tenderness Laboratory Results Last 24 Hours Test 02/05/17 19:53 02/06/17 05:27 Stool Occult Blood NEGATIVE White Blood Count 6.80 K/uL Red Blood Count 3.99 M/uL Hemoglobin 10.8 g/dL Hematocrit 34.1 % Mean Corpuscular Volume 85.5 fL Mean Corpuscular Hemoglobin 27.1 pg Mean Corpuscular Hemoglobin Concent 31.7 g/dl Platelet Count 215 K/uL Mean Platelet Volume 9.5 fL Neutrophils (%) (Auto) 53.4 % Lymphocytes (%) (Auto) 33.7 % Monocytes (%) (Auto) 8.2 % Eosinophils (%) (Auto) 4.3 % Basophils (%) (Auto) 0.3 % Neutrophils # (Auto) 3.63 K/uL Lymphocytes # (Auto) 2.29 K/uL Monocytes # (Auto) 0.56 K/uL Eosinophils # (Auto) 0.29 K/uL Basophils # (Auto) 0.02 K/uL RDW Standard Deviation 40.7 fL RDW Coefficient of Variation 13.0 % Immature Granulocyte % (Auto) 0.1 % Immature Granulocyte # (Auto) 0.01 K/uL Sodium Level 145 mmol/L Potassium Level 3.8 mmol/L Chloride Level 112 mmol/L Carbon Dioxide Level 22 mmol/L Anion Gap 11.0 mmol/L Blood Urea Nitrogen 3 mg/dl Creatinine 0.53 mg/dl Est Creatinine Clear Calc Drug Dose 147.3 ml/min Estimated GFR () > 150.0 Estimated GFR (Non- 132.9 BUN/Creatinine Ratio 5.6 Random Glucose 87 mg/dl Calcium Level 8.0 mg/dl Magnesium Level 2.1 mg/dl Assessment and Plan Assessment: 26 yo CF with RLQ abdominal pain and abnormal CT imaging. Plan: Proceed with colonoscopy.
[2017-02-06] MEDS ORDERED: GLYCOPYRROLATE INJ 0.2 MG/ML VIAL ONE (12:48)
[2017-02-06] MEDS ORDERED: PROPOFOL IV EMULSION 10 MG/ML 20 ML VIAL IV ONE (12:48)
[2017-02-06] MEDS ORDERED: MIDAZOLAM HCL 1 MG/ML 2ML VIAL ONE (12:48)
--- NOTE | 2017-02-06 13:19 | GI REPORT ---
Procedure Date: 02/06/2017 12:33 PM Procedure: Colonoscopy Indications: Abdominal pain in the right lower quadrant, Abnormal CT of the GI tract Medicines: Monitored Anesthesia Care Complications: No immediate complications. Estimated Blood Loss: Estimated blood loss: none. Procedure: Pre-Anesthesia Assessment: - Prior to the procedure, a History and Physical was performed, and patient medications and allergies were reviewed. The patient's tolerance of previous anesthesia was also reviewed. The risks and benefits of the procedure and the sedation options and risks were discussed with the patient. All questions were answered, and informed consent was obtained. Prior Anticoagulants: The patient has taken no previous anticoagulant or antiplatelet agents. ASA Grade Assessment: II - A patient with mild systemic disease. After reviewing the risks and benefits, the patient was deemed in satisfactory condition to undergo the procedure. After I obtained informed consent, the scope was passed under direct vision. Throughout the procedure, the patient's blood pressure, pulse, and oxygen saturations were monitored continuously. The scope was introduced through the anus and advanced to the terminal ileum. The colonoscopy was performed without difficulty. The patient tolerated the procedure well. The quality of the bowel preparation was good. The terminal ileum, ileocecal valve, appendiceal orifice, and rectum were photographed. Findings: A localized area of mucosa in the terminal ileum was severely scarred and ulcerated. Biopsies were taken with a cold forceps for histology. Biopsies were taken with a cold forceps in the entire colon for histology. Non-bleeding internal hemorrhoids were found during retroflexion. The hemorrhoids were small. Impression: - Scarred and ulcerated mucosa in the terminal ileum. Biopsied. - Non-bleeding internal hemorrhoids. - Biopsies were taken with a cold forceps for histology in the entire colon. Recommendation: - Resume previous diet. - Continue present medications. - Repeat colonoscopy for surveillance based on pathology results. - Return patient to hospital block for ongoing care. - Use budesonide 9 mg PO one time per day for 8 weeks. Chuck Aggarwal, DO 02/06/2017 1:18:26 PM This report has been signed electronically. Note Initiated On: 02/06/2017 12:33 PM I attest to the content of the Intraoperative Record and orders documented therein, exceptions below
[2017-02-06] MEDS ORDERED: BUDESONIDE EC 3 MG CAP PO ONE (14:32)
[2017-02-06 14:44] VITALS: BP 110/73; PULSE 71; TEMP 36.6; O2SAT 99
--- NOTE | 2017-02-06 15:23 | Anesthesiology Progress Note ---
Anesthesia Post Op Note Date & Time Feb 06, 2017 at 15:23 Vital Signs Pain Intensity: 9.0 Vital Signs Past 12 Hours Date Time Temp Pulse Resp B/P (MAP) Pulse Ox O2 Delivery O2 Flow Rate FiO2 02/06/17 14:44 36.6 71 16 110/73 (85) 99 Room Air 02/06/17 13:29 90 16 110/69 100 Room Air 02/06/17 13:20 95 16 116/78 99 Room Air 02/06/17 13:13 88 16 97/64 99 Room Air 02/06/17 12:23 37.6 89 20 118/74 (89) 100 Room Air 02/06/17 07:56 36.8 84 16 105/71 (82) 98 Room Air 02/06/17 07:30 Room Air Notes Mental Status: alert / awake / arousable, participated in evaluation Pt Amnestic to Procedure: Yes Nausea / Vomiting: adequately controlled Pain: adequately controlled Airway Patency, RR, SpO2: stable & adequate BP & HR: stable & adequate Hydration State: stable & adequate Anesthetic Complications: no major complications apparent
[2017-02-06 22:58] VITALS: BP 102/56; PULSE 70; TEMP 36.7; O2SAT 98
[2017-02-07] MEDS: RANITIDINE IV 50 MG in DEXTROSE 5% 100ML 100 ML IV SCH ×2 (01:59→11:08)
[2017-02-07] MEDS: NSS + 20MEQ KCL 1000ML 1,000 ML IV SCH (05:38)
[2017-02-07] MEDS: PIPERACILL/TAZOBAC IV 3.375 GM in DEXTROSE 5% 100ML IV SCH (07:29)
[2017-02-07] MEDS: MoRPHine SULFATE 4 MG/ML 1 ML CARP\\VIAL IV PRN (07:38)
[2017-02-07 07:39] LABS: BASO % 0.3 %; BASO ABS # 0.02 K/uL (0-0.2); COMPLETE YES; EOS % 2.7 %; HEMATOCRIT 38.5 % (37-47); IG% 0.3 %; LYMPH % 29.4 %; LYMPH ABS # 2.16 K/uL (1.2-3.4); MEAN CELL VOLUME 84.1 fL (80-100); MEAN CORPUSCULAR HEMOGLOBIN 27.5 pg (25-34); MEAN CORPUSCULAR HGB CONC 32.7 g/dl (32-36); MEAN PLATELET VOLUME 9.3 fL (7.4-10.4); MONO % 4.8 %; NEUT % 62.5 %; PLATELET COUNT 255 K/uL (130-400); RED BLOOD COUNT 4.58 M/uL (4.2-5.4); WHITE BLOOD COUNT 7.34 K/uL (4.8-10.8)
[2017-02-07 07:49] VITALS: BP 115/77; PULSE 91; TEMP 36.7; O2SAT 98
[2017-02-07 08:07] LABS: BUN/CREATININE RATIO 5.6 (10-20); CREATININE 0.71 mg/dl (0.60-1.20); MAGNESIUM 2.2 mg/dl (1.8-2.4); POTASSIUM 3.5 mmol/L (3.5-5.1)
[2017-02-07] MEDS ORDERED: ACET325T96 PO (08:24)
[2017-02-07] MEDS ORDERED: ENT3 PO (08:24)
--- NOTE | 2017-02-07 08:35 | Discharge Instructions ---
Discharge Instructions Date of Service Feb 07, 2017. Admission Reason for Admission: Partial Small bowel obstruction, ileitis Discharge Discharge Diagnosis / Problem: Partial small bowel obstruction,Crohn's ileitis ; bilateral sacroiliitis Discharge Goals Goal(s): Decrease discomfort, Improve function, Improve disease control, Learn about illness, Diagnostic testing, Therapeutic intervention, Prevent Disease Progression Activity Recommendations Activity Limitations: resume your previous activity Lifting Limitations: none Exercise/Sports Limitations: none Shower/Bathe: no limitations Driving or Machine Use: no limitations . Instructions / Follow-Up Instructions / Follow-Up You were admitted with a partial small bowel obstruction caused by inflammation in your intestine. You received a colonoscopy during your hospital stay to evaluate your abdominal pain. Colonoscopy was suggestive of Crohn's disease- Crohn's disease is a chronic inflammatory bowel disease that affects the lining of your digestive tract. New/changed medications: 1. Budesonide 9 mg by mouth once daily x8 weeks This medication is a steroid used to treat Crohn's flare (symptoms you have described at admission) Please eat with medication to prevent upset stomach 2. If you begin to notice an upset stomach with medication, you may begin to take Prilosec- this medication can be bought [id number]. Please follow instructions on the box 3. You may take Tylenol as needed for pain control- do NOT exceed more than 4g (4000 mg) of Tylenol in a 24-hour period 4. You can take Zofran as needed for nausea but if nausea worsens or you begin vomiting along with worsening abdominal pain, you should return to the ER Resume all other regular home medications as prescribed Follow-up appointments with your PCP, GI, and Rheumatology have been scheduled by our nurse navigator. It is very important you keep these follow-up appointments Please follow-up/keep all of your subspecialty appointments Current Hospital Diet Patient's current hospital diet: Full Liquid Diet Discharge Diet Recommended Diet: Low Fiber Diet (continue to advance to regular diet as tolerated ) Procedures Procedures Performed: Abdominal CT Colonoscopy w/ biopsies Pending Studies Studies pending at discharge: yes List of pending studies: Quantiferon gold (test for Tuberculosis) Biopsies from colonoscopy Laboratory Results Results Past 24 Hours Test 02/07/17 07:26 Range/Units White Blood Count 7.34 4.8-10.8 K/uL Red Blood Count 4.58 4.2-5.4 M/uL Hemoglobin 12.6 12.0-16.0 g/dL Hematocrit 38.5 37-47 % Mean Corpuscular Volume 84.1 80-100 fL Mean Corpuscular Hemoglobin 27.5 25-34 pg Mean Corpuscular Hemoglobin Concent 32.7 32-36 g/dl Platelet Count 255 130-400 K/uL Mean Platelet Volume 9.3 7.4-10.4 fL Neutrophils (%) (Auto) 62.5 % Lymphocytes (%) (Auto) 29.4 % Monocytes (%) (Auto) 4.8 % Eosinophils (%) (Auto) 2.7 % Basophils (%) (Auto) 0.3 % Neutrophils # (Auto) 4.59 1.4-6.5 K/uL Lymphocytes # (Auto) 2.16 1.2-3.4 K/uL Monocytes # (Auto) 0.35 0.11-0.59 K/uL Eosinophils # (Auto) 0.20 0-0.5 K/uL Basophils # (Auto) 0.02 0-0.2 K/uL RDW Standard Deviation 38.5 36.4-46.3 fL RDW Coefficient of Variation 12.7 11.5-14.5 % Immature Granulocyte % (Auto) 0.3 % Immature Granulocyte # (Auto) 0.02 0.00-0.02 K/uL Sodium Level 142 136-145 mmol/L Potassium Level 3.5 3.5-5.1 mmol/L Chloride Level 108 98-107 mmol/L Carbon Dioxide Level 25 21-32 mmol/L Anion Gap 9.0 3-11 mmol/L Blood Urea Nitrogen 4 7-18 mg/dl Creatinine 0.71 0.60-1.20 mg/dl Est Creatinine Clear Calc Drug Dose 109.9 ml/min Estimated GFR () 138.2 Estimated GFR (Non- 119.2 BUN/Creatinine Ratio 5.6 10-20 Random Glucose 86 70-99 mg/dl Magnesium Level 2.2 1.8-2.4 mg/dl Hepatitis B Surface Antigen NEG NEG Medical Emergencies . Who to Call and When: Medical Emergencies: If at any time you feel your situation is an emergency, please call 911 immediately. . Non-Emergent Contact Non-Emergency issues call your: Primary Care Provider Call Non-Emergent contact if: you have a fever, your pain is not controlled, your pain is worsening, your pain is unusual for you, your pain is concerning you, you have any medication questions . . "Provider Documentation" section prepared by Audrey Nice. . VTE Core Measure Inpt VTE Proph given/why not?: SCD's
[2017-02-07 08:50] LABS: CALCIUM 9.2 mg/dl (8.5-10.1)
--- NOTE | 2017-02-07 08:50 | Discharge Summary ---
Discharge Summary Date of Service Feb 07, 2017. (Audrey Nice, MAYA) Discharge Summary Admission Date: Feb 04, 2017 at 15:52 Discharge Date: Feb 07, 2017 Discharge Disposition: Home Principal Diagnosis: PSBO and Crohn's ileitis; bilateral sacrolitis Problems/Secondary Diagnoses: Partial small bowel obstruction Crohn's disease Ankylosing spondylitis/Bilateral sacroiliitis Migraines w/ aura Protein in UA and elevated Total protein Procedures: Colonoscopy: Impression: 1. Scarred and ulcerated mucosa at terminal ileum 2. Non-bleeding internal hemorrhoids 3. Biopsies of entire colon for histology PA CHEST RADIOGRAPH AND UPRIGHT AND SUPINE AP RADIOGRAPHS OF THE ABDOMEN CLINICAL HISTORY: Vomiting and abdominal pain. COMPARISON STUDY: Chest radiograph September 06, 2014. FINDINGS: Lung volumes are normal. There is no consolidation to suggest pneumonia. No pneumothorax or pleural effusion is present. Cardiac size is normal. Mediastinal contours are normal. There is no free air. Several loops of mildly dilated small bowel are noted. There is possible small bowel wall thickening which is difficult to assess by radiography. IMPRESSION: 1. A few loops of mildly dilated small bowel with possible small bowel wall thickening which is difficult to assess by radiography. The findings could reflect a partial small bowel obstruction or enteritis. 2. No free air. 3. No acute cardiopulmonary findings. Electronically signed by: Eliseo Posadas M.D. 02/04/2017 1:41 PM Dictated Date/Time: 02/04/2017 1:37 PM The status of this report is Signed. Draft = Not yet reviewed or approved by Radiologist. Signed = Reviewed and approved by Radiologist. CT OF THE ABDOMEN AND PELVIS WITH CONTRAST CLINICAL HISTORY: Vomiting and abdominal pain. COMPARISON STUDY: Abdominal series performed earlier today. TECHNIQUE: Following IV administration of 94 mL of [id number], axial images of the abdomen and pelvis were obtained from the lung bases to the proximal femurs. Images were reviewed in the axial, sagittal, and coronal planes. IV contrast was administered without complication. CT DOSE: 307.89 mGy.cm FINDINGS: No pneumatosis, free air or portal venous gas is present. The liver, spleen, adrenal glands, right kidney and pancreas are normal. An 8 mm hypodense lesion within the midpole of the left kidney is too small to characterize. There is no biliary or pancreatic ductal dilatation. There is no hydronephrosis or hydroureter. No is made of multiple loops of fluid-filled mildly dilated small bowel with apparent transition point within the lower mid abdomen shown on image 284 of [id number] with small bowel feces sign. There is associated mesenteric infiltration and a small to moderate amount of ascites within the pelvis. Apparent wall thickening of the proximal ileum is noted which may reflect a nonspecific enteritis. Distal small bowel is decompressed. The appendix is normal. There are numerous small abdominal and pelvic lymph nodes. No enlarged lymph nodes are present. There is a 2 cm dominant follicle within the left ovary. Irregularity of the bilateral sacroiliac joints suggesting sacroiliitis. IMPRESSION: 1. Moderate grade partial small bowel obstruction with transition point within the lower mid abdomen, within the proximal ileum. The bowel obstruction could be due to a nonspecific enteritis which could be inflammatory or infectious in etiology. Possible terminal ileal wall thickening. The findings raise the possibility of an etiology such as Crohn's disease. Associated mesenteric infiltration and small to moderate pelvic ascites. 2. Findings suggestive of bilateral sacroiliitis. Electronically signed by: Eliseo Posadas M.D. 02/04/2017 3:05 PM Dictated Date/Time: 02/04/2017 2:49 PM The status of this report is Signed. Draft = Not yet reviewed or approved by Radiologist. Signed = Reviewed and approved by Radiologist. Consultations: GI- Case Rheumatology- Dr. You (Audrey Nice, VERNELLC) Medication Reconciliation New Medications: Acetaminophen Tab (Tylenol) 325 Mg Tab 650 MG PO Q4H PRN for Pain or Fever for 30 Days, #240 TAB Budesonide (Budesonide) 3 Mg Cap 9 MG PO QAM for 56 Days, #168 CAP Continued Medications: Amitriptyline HCl (Amitriptyline HCl) 25 Mg Tab 25 MG PO DAILY Rizatriptan Benzoate (Maxalt) 5 Mg Tab 5 MG PO DAILY PRN for Migraine, TAB Discharge Exam Review of Systems: Constitutional: No fever, No chills, No sweats, No weakness, No fatigue Respiratory: No cough, No shortness of breath, No hemoptysis Cardiovascular: No chest pain, No edema, No palpitations Abdomen: + pain (mild- improving ), No nausea, No vomiting, No diarrhea, No constipation, No GI bleeding Musculoskeletal: No joint pain, No muscle pain, No swelling, No calf pain Genitourinary - Female: No dysuria, No hematuria Neurologic: No weakness, No numbness/tingling Psychiatric: No depression symptoms, No anxiety Hematologic / Lymphatic: No abnormal bleeding/bruising Integumentary: No rash, No itch, No new/changing skin lesions Physical Exam: General Appearance: WD/WN, no apparent distress Eyes: normal inspection, PERRL ENT: hearing grossly normal Neck: supple Respiratory/Chest: lungs clear, no respiratory distress, no accessory muscle use Cardiovascular: regular rate, rhythm Abdomen / GI: normal bowel sounds, soft, + tenderness (very mild diffuse ttp ) Extremities: no calf tenderness, no pedal edema Neurologic/Psychiatric: alert, normal mood/affect, oriented x 3 Skin: normal color, warm/dry, no rash (Audrey Nice, VERNELLC) Hospital Course HPI on admission: The patient is a 26-year-old female who presents to the emergency department with persistent abdominal pain and vomiting that began about 24 hours prior to arrival. She is also had diarrhea, chills and sweats. She denies any recent travel or sick exposures. She has had symptoms off and on since she was young. She does have chronic low back pain. PSBO and Crohn's disease identified on colonoscopy on 02/06/17: - Admit to med/surg - IV Zosyn (started on 02/04) -- Discussed w/ GI- no indication for antibiotics at discharge - IV NSS + KCL 20 mEq @ 100 ml/hr - Zofran 4 mg IV q6 hrs PRN and IV Zantac - Toradol 30 mg IV q6 hrs PRN, Morphine sulfate 2-4 mg IV q2 hrs PRN, Tylenol 650 mg q4 hrs PRN -- Pain significantly improved during hospital stay- instructed patient to take Tylenol PRN for pain management - Consulted GI, appreciate recommendations -- GI prep on 02/05 and colonoscopy on 02/06 w/ Case- suggestive of Crohn's disease; biopsies obtained and pending -- Started Budesonide 9 mg daily x8 weeks on 02/06 - Low hgb- iron panel reviewed, TSH WNL, stool Hemoccult negative Ankylosing spondylitis- CT did show active bilateral sacroiliitis- multiple anti -inflammatories in past w/out benefit: - Consult Rheumatology, appreciate recommendations- followed w/ Dr. You in that past -- Check Hepatitis B, C, and Quantiferon TB for possible initiation of biological agents -- Hep B- negative; other studies pending at discharge -- f/u in 1-2 weeks - ESR- WNL and CRP pending Migraines w/ aura: Amitriptyline 25 mg daily, and Maxalt 5 mg PRN Protein in UA and elevated Total protein: Recommend PCP repeat UA and Tprot when hydrated DVT Prophylaxis: Ambulation GI Prophylaxis: IV Zantac Code Status: LEVEL I, FULL Dispo: Discharge to home Follow-up appointments w/ PCP, GI, and rheumatology scheduled by nurse navigator prior to discharge Total Time Spent: Greater than 30 minutes This includes examination of the patient, discharge planning, medication reconciliation, and communication with other providers. (Audrey Nice PA-C) Discharge Instructions Please refer to the electronic Patient Visit Report (Discharge Instructions) for additional information. (Audrey Nice PA-C) Follow-Up Please follow-up with your PCP within 5-7 days Please follow-up with GI Please follow-up with Rheumatology Please follow-up/keep all of your subspecialty appointments (Audrey Nice PA-C) Additional Copies To Wally Redman M.D. 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 Discussed with CHOCO Nice and agree with findings and plan as documented in the note. Any exceptions or clarifications are listed here: Improved, karolyn po, no N/V. Ready for discharge Vitals reviewed NAD, AAOx3 HEENT anicteric sclerae, no cervical ZACHARY, neck supple RRR no mgr CTAB no wcr ABd +BS, soft, +TTP suprapubic and periumbilical region w/o guarding or rebound Ext: no TTP over shoulders, elbows, hands, fingers, hips, knees, ankles,toes, no joint effusions, FROM, gait not tested SKin: arms with diffuse keratosis pilaris, no malar rash 26 yo female with h/o ankylosing spondylitis, migraine with aura, here with PSBO and Crohn's ileitis-new diagnosis -appreciate Rheum input-f/u as outpt -Appreciate GI input-f/u this week-he will arrange -protein in UA and elevated Total protein--> repeat UA and Tprot when hydrated -start Budesonide 9mg po daily x 8 weeks, may need PPI if has UGI issues with steroids Documented By: Hedy Rebolledo (Hedy Rebolledo MD)
[2017-02-07] MEDS ORDERED: BUDESONIDE EC 3 MG CAP PO SCH (09:00)
[2017-02-07] MEDS: AMITRIPTYLINE HCL 25 MG TAB PO SCH (09:02)
--- NOTE | 2017-02-07 09:41 | Gastroenterology Progress Note ---
Progress Note Date of Service: Feb 07, 2017 Subjective Pt evaluation today including: conversation w/ patient, physical exam, lab review, review of inpatient medication list Patient reports improved symptoms of abdominal pain. Rates pain as 4/10 at present. Mild bloating. No nausea or vomiting. Tolerating diet. No leukocytosis or anemia. Colonoscopy yesterday with findings of active ileitis with ulceration. Pathology pending. Patient for probable discharge today. Review of Systems Constitutional: No fever, No chills Abdomen: + see HPI Medications Current Inpatient Medications Medications (Trade) Dose Ordered Sig/Alon Route Start Time Stop Time Status Last Admin Dose Admin Ioversol (Optiray 320) 125 ml UD PRN IV 02/04/17 14:15 02/08/17 14:14 Acetaminophen (Tylenol Tab) 650 mg Q4H PRN PO 02/04/17 16:00 03/06/17 15:59 02/04/17 17:18 650 MG Zolpidem Tartrate (Ambien Tab) 5 mg HSZ PRN PO 02/04/17 16:00 03/06/17 15:59 Amitriptyline HCl (Elavil Tab) 25 mg DAILY PO 02/05/17 09:00 03/07/17 08:59 02/07/17 09:02 25 MG Rizatriptan Benzoate (Maxalt Tab) 5 mg DAILY PRN PO 02/04/17 16:00 03/06/17 15:59 Ondansetron HCl (Zofran Inj) 4 mg Q6H PRN IV 02/04/17 16:00 03/06/17 15:59 02/05/17 18:08 4 MG Acetaminophen 100 ml @ 400 mls/hr Q8H PRN IV 02/04/17 16:00 03/06/17 15:59 Ketorolac Tromethamine (Toradol Inj) 30 mg Q6H PRN IV 02/04/17 16:00 02/09/17 15:59 Morphine Sulfate (MoRPHine SULFATE INJ) 2 mg Q2H PRN IV 02/04/17 16:00 02/18/17 15:59 Morphine Sulfate (MoRPHine SULFATE INJ) 4 mg Q2H PRN IV 02/04/17 16:00 02/18/17 15:59 02/07/17 07:38 4 MG Ranitidine HCl 50 mg/Dextrose 102 ml @ 200 mls/hr Q8H IV 02/04/17 18:00 03/06/17 17:59 02/07/17 01:59 200 MLS/HR Piperacillin Sod/ Tazobactam Sod (Consult) 1 ea UD PRN N/A 02/04/17 17:30 03/06/17 17:29 Piperacillin Sod/ Tazobactam Sod 3.375 gm/Dextrose 115 ml @ 28.75 mls/ hr Q8H IV 02/05/17 00:00 02/15/17 00:00 02/07/17 07:29 28.75 MLS/HR Budesonide (Entocort EC Cap) 9 mg QAM PO 02/07/17 09:00 03/09/17 08:59 02/07/17 09:02 9 MG Objective Vital Signs Date Time Temp Pulse Resp B/P (MAP) Pulse Ox O2 Delivery O2 Flow Rate FiO2 02/07/17 07:49 36.7 91 16 115/77 (90) 98 Room Air 02/06/17 23:40 Room Air 02/06/17 22:58 36.7 70 14 102/56 (71) 98 Room Air 02/06/17 15:20 Room Air 02/06/17 14:44 36.6 71 16 110/73 (85) 99 Room Air 02/06/17 13:29 90 16 110/69 100 Room Air 02/06/17 13:20 95 16 116/78 99 Room Air 02/06/17 13:13 88 16 97/64 99 Room Air 02/06/17 12:23 37.6 89 20 118/74 (89) 100 Room Air Physical Exam General Appearance: no apparent distress Eyes: EOMI Respiratory/Chest: lungs clear, normal breath sounds, no respiratory distress Cardiovascular: regular rate, rhythm, no gallop, no murmur Abdomen: normal bowel sounds, non tender, soft Neurologic/Psych: alert, normal mood/affect, oriented x 3 Skin: warm/dry Laboratory Results Last 24 Hours Test 02/07/17 07:26 White Blood Count 7.34 K/uL Red Blood Count 4.58 M/uL Hemoglobin 12.6 g/dL Hematocrit 38.5 % Mean Corpuscular Volume 84.1 fL Mean Corpuscular Hemoglobin 27.5 pg Mean Corpuscular Hemoglobin Concent 32.7 g/dl Platelet Count 255 K/uL Mean Platelet Volume 9.3 fL Neutrophils (%) (Auto) 62.5 % Lymphocytes (%) (Auto) 29.4 % Monocytes (%) (Auto) 4.8 % Eosinophils (%) (Auto) 2.7 % Basophils (%) (Auto) 0.3 % Neutrophils # (Auto) 4.59 K/uL Lymphocytes # (Auto) 2.16 K/uL Monocytes # (Auto) 0.35 K/uL Eosinophils # (Auto) 0.20 K/uL Basophils # (Auto) 0.02 K/uL RDW Standard Deviation 38.5 fL RDW Coefficient of Variation 12.7 % Immature Granulocyte % (Auto) 0.3 % Immature Granulocyte # (Auto) 0.02 K/uL Sodium Level 142 mmol/L Potassium Level 3.5 mmol/L Chloride Level 108 mmol/L Carbon Dioxide Level 25 mmol/L Anion Gap 9.0 mmol/L Blood Urea Nitrogen 4 mg/dl Creatinine 0.71 mg/dl Est Creatinine Clear Calc Drug Dose 109.9 ml/min Estimated GFR () 138.2 Estimated GFR (Non- 119.2 BUN/Creatinine Ratio 5.6 Random Glucose 86 mg/dl Calcium Level 9.2 mg/dl Magnesium Level 2.2 mg/dl Hepatitis B Surface Antigen NEG Hepatitis C Antibody NEG Assessment and Plan Patient is a 26 year old female with a history of ankylosing spondylitis presenting with RLQ abdominal pain, n/v/d and abnormal CT imaging suggestive of terminal ileitis, confirmed on colonoscopy yesterday. 1. Okay for discharge from GI standpoint. 2. Continue Entocort 9 mg daily for 8 weeks. 3. Await pathology as pending. 4. Follow up as scheduled in our office on 02/17/17 @ 3:00 Agree with YOSELYN Sheikh as above Abd: Soft, NT, ND, +BS Will start Humira or Remicade depending on patient's insurance Continue current therapy Followup in our office as scheduled
[2017-02-07 11:00] LABS: C-REACTIVE PROT HIGHSEN 9.2 MG/L
[2017-02-07] MEDS ORDERED: ONDA4TAB10 SL (13:57)
[2017-02-07 14:14] VITALS: BP 115/77; PULSE 91; TEMP 36.7; O2SAT 98
[2017-02-07 15:10] VITALS: BP 111/78; PULSE 90; TEMP 36.6; O2SAT 99
[2017-02-10 13:36] LABS: QUANTIF TB AG-NIL <0.00 IU/ML; QUANTIFERON NIL 0.41 IU/ML
== END 2017-02-07 16:18 | disposition home or self-care (01) | DRG 389 ==
LOC: C.EDB 12:21 → C.MSW 15:52 → ENRESERV 16:09 → C.MSW 02-05 18:33
PROVIDERS: ADMIT Hospitalist; ATTEND Family Medicine
PROC: 0DJD8ZZ Inspection of Lower Intestinal Tract, Via Natural or Artificial Opening Endoscopic (ICD-10-PCS; principal; 2017-02-06 12:15)
DX: K56.60 Unspecified intestinal obstruction (principal); K50.90 Crohn's disease, unspecified, without complications; M46.1 Sacroiliitis, not elsewhere classified; F41.9 Anxiety disorder, unspecified; G43.109 Migraine with aura, not intractable, without status migrainosus

== ENCOUNTER 2017-12-25 18:16 | Emergency (ER) | payer OTHER ==
[~2017-12-25] VITALS: Ht 165.1 cm; Wt 75.1 kg
[~2017-12-25 18:16] MED LIST changes: +ACET-1693 PO; +AMT25 PO; +ENT3 PO; -MELO7.5T5 PO; +ONDA4TAB10 SL; -PAROXETINE PO; +RIZA5TAB10 PO
[2017-12-25 18:30] VITALS: TEMP 36.9; Ht 165.1 cm; Wt 75.1 kg
[2017-12-25] MEDS ORDERED: SODIUM CHLORIDE 0.9% 1000ML 1,000 ML IV STA (18:46)
[2017-12-25] MEDS ORDERED: DiphenhydrAMINE HCL 50 MG/ML VIAL IV STA (18:46)
[2017-12-25] MEDS ORDERED: PROCHLORPERAZINE 5 MG/ML 2 ML VIAL IV STA (18:46)
[2017-12-25] MEDS ORDERED: KETOROLAC TROMETHAMINE 30 MG/ML VIAL IV STA (18:46)
[2017-12-25] MEDS ORDERED: MAGNESIUM SULFATE 1GM / D5W 1 GM BAG IV STA (18:46)
--- NOTE | 2017-12-25 18:51 | EMERGENCY ROOM VISIT NOTE ---
History Report prepared by Peter: Chalo Fink Under the Supervision of: Dr. Abner Kebede M.D. First contact with patient: 18:38 Chief Complaint: VOMITING Stated Complaint: VOMITING,HX OF CROHN'S Nursing Triage Summary: Patient presents ambulatory to triage with c/o nausea, vomiting, headache States symptoms began last night hx/ crohn's disease notes blood in stool last week History of Present Illness The patient is a 27 year old female who presents to the Emergency Room with complaints of intermittent vomiting beginning last night. She currently rates her discomfort a 5/10 in severity. The patient states she has a history of Crohn 's and migraines. She reports she has been vomiting straight bile and has developed a severe migraine. The patient notes this migraine is similar to her previous migraines. She states she also developed nausea and abdominal pain. The patient reports she has not taken anything for her nausea or abdominal pain. She notes blood in her stool for the past week. The patient states she has had subjective fevers without taking her temperature. She reports she did not call her Crohn's doctor because she was recently evaluated. The patient notes she was placed on prednisone for two months at first and now takes injections monthly and is two days out from her next dose. She states she is currently on her menstrual cycle. The patient denies the chance of , retaining a tampon, fevers, and neck pain. Source of History: patient Onset: last night Symptom Intensity: 5/10 Quality: other (vomiting) Timing: intermittent Associated Symptoms: + headache (severe migraine), + nausea, + abdominal pain, No fevers, No neck pain Note: Associated symptoms: blood in stool for a week, subjective fevers Review of Systems See HPI for pertinent positives & negatives. A total of 10 systems reviewed and were otherwise negative. Past Medical & Surgical Medical Problems: (1) Ankylosing spondylitis lumbar region (2) No Known Active Medical Problems Family History Diabetes mellitus Heart disease Hypertension Social History Smoking Status: Never Smoker Alcohol Use: occasionally Drug Use: none Marital Status: single Occupation Status: employed Current/Historical Medications Scheduled Amitriptyline HCl (Amitriptyline HCl), 25 MG PO DAILY Certolizumab Pegol (Cimzia), 400 MG INJ MONTHLY Dicyclomine Hcl (Bentyl), 10 MG PO TID Docusate Sodium (Colace), 1 CAP PO BID Ondasetron Odt (Zofran Odt), 4 MG SL Q6H Sennosides (Senokot), 8.6 MG PO HS Scheduled PRN Acetaminophen (Tylenol), 1,000 MG PO DAILY PRN for Pain or Fever Rizatriptan Benzoate (Maxalt), 5 MG PO DAILY PRN for Migraine Allergies Coded Allergies: No Known Allergies (Unverified , 12/25/17) Physical Exam Vital Signs Date Time Temp Pulse Resp B/P (MAP) Pulse Ox O2 Delivery O2 Flow Rate FiO2 12/25/17 22:46 85 18 116/62 98 12/25/17 20:51 94 12/25/17 20:17 77 18 115/76 99 Room Air 12/25/17 18:30 36.9 128 16 115/75 99 Room Air Physical Exam GENERAL: Awake, alert, well-appearing, in no acute distress HENT: Normocephalic, atraumatic. Oropharynx unremarkable. EYES: Normal conjunctiva. Sclera non-icteric. NECK: Supple. No nuchal rigidity. FROM. No JVD. RESPIRATORY: Clear to auscultation. CARDIAC: Regular rate, normal rhythm. Extremities warm and well perfused. Pulses equal. ABDOMEN: Soft, non-distended. No tenderness to palpation. No rebound or guarding. No masses. RECTAL: Deferred. MUSCULOSKELETAL: Chest examination reveals no tenderness. The back is symmetrical on inspection without obvious abnormality. There is no CVA tenderness to palpation. No joint edema. LOWER EXTREMITIES: Calves are equal size bilaterally and non-tender. No edema. No discoloration. NEURO: Normal sensorium. No sensory or motor deficits noted. SKIN: No rash or jaundice noted. Medical Decision & Procedures ER Provider Diagnostic Interpretation: Radiology results as stated below per my review and radiologist interpretation: ABD/PELVIS IV AND ORAL CONT CT DOSE: 319.60 mGy.cm HISTORY: Crohn's disease. Pain. Pt c/o diffuse abd pain, hx of crohns TECHNIQUE: Multiaxial CT images of the abdomen and pelvis were performed following the use of intravenous and oral contrast. A dose lowering technique was utilized adhering to the principles of ALARA. COMPARISON STUDY: None. FINDINGS: Lung bases are clear. Liver spleen and pancreas are unremarkable. The kidneys enhance uniformly. The upper abdominal bowel pattern is nonobstructive. There are several small reactive mesenteric nodes. There are findings of a short segment approximately 6 cm in length of the terminal ileum demonstrating circumferential wall thickening. This suggestive of potential inflammatory bowel change and/or Crohn's. No evidence for abscess collection or obstruction. No evidence for pericecal infiltrative change and/or appendicitis. Nonobstructive bowel pattern. No evidence for abscess or obstruction. Additional wall thickening involving a 15 cm segment centimeter length of the distal small bowel within the right central pelvis. This again suggests the possibility of Crohn's disease. No free fluid within the pelvic cul-de-sac. Uterus is anteflexed. No evidence for ovarian enlargement. IMPRESSION: 1. Circumferential wall thickening of a short segment loop of terminal ileum as well as a longer 15 cm length of distal small bowel within the right central pelvis. 2. This appearance is consistent with that of Crohn's disease. 3. No evidence for abscess collection or obstruction. The above report was generated using voice recognition software. It may contain grammatical, syntax or spelling errors. Electronically signed by: Donell Mccormick M.D. 12/25/2017 9:35 PM Dictated Date/Time: 12/25/2017 9:32 PM Laboratory Results 12/25/17 19:03 Red Blood Count 4.73, Mean Corpuscular Volume 83.9, Mean Corpuscular Hemoglobin 28.8, Mean Corpuscular Hemoglobin Concent 34.3, Mean Platelet Volume 9.3, Neutrophils (%) (Auto) 75.7, Lymphocytes (%) (Auto) 18.5, Monocytes (%) (Auto) 3.7, Eosinophils (%) (Auto) 1.5, Basophils (%) (Auto) 0.4, Neutrophils # (Auto) 6.22, Lymphocytes # (Auto) 1.52, Monocytes # (Auto) 0.30, Eosinophils # (Auto) 0.12, Basophils # (Auto) 0.03 12/25/17 19:03 Test 12/25/17 19:03 12/25/17 19:05 12/25/17 20:44 White Blood Count 8.21 K/uL (4.8-10.8) Red Blood Count 4.73 M/uL (4.2-5.4) Hemoglobin 13.6 g/dL (12.0-16.0) Hematocrit 39.7 % (37-47) Mean Corpuscular Volume 83.9 fL (80-100) Mean Corpuscular Hemoglobin 28.8 pg (25-34) Mean Corpuscular Hemoglobin Concent 34.3 g/dl (32-36) Platelet Count 320 K/uL (130-400) Mean Platelet Volume 9.3 fL (7.4-10.4) Neutrophils (%) (Auto) 75.7 % Lymphocytes (%) (Auto) 18.5 % Monocytes (%) (Auto) 3.7 % Eosinophils (%) (Auto) 1.5 % Basophils (%) (Auto) 0.4 % Neutrophils # (Auto) 6.22 K/uL (1.4-6.5) Lymphocytes # (Auto) 1.52 K/uL (1.2-3.4) Monocytes # (Auto) 0.30 K/uL (0.11-0.59) Eosinophils # (Auto) 0.12 K/uL (0-0.5) Basophils # (Auto) 0.03 K/uL (0-0.2) RDW Standard Deviation 37.4 fL (36.4-46.3) RDW Coefficient of Variation 12.2 % (11.5-14.5) Immature Granulocyte % (Auto) 0.2 % Immature Granulocyte # (Auto) 0.02 K/uL (0.00-0.02) Anion Gap 3.0 mmol/L (3-11) Est Creatinine Clear Calc Drug Dose 116.3 ml/min Estimated GFR () 128.4 Estimated GFR (Non- 110.8 BUN/Creatinine Ratio 8.5 (10-20) Calcium Level 9.0 mg/dl (8.5-10.1) Total Bilirubin 0.5 mg/dl (0.2-1) Direct Bilirubin 0.1 mg/dl (0-0.2) Aspartate Amino Transf (AST/SGOT) 10 U/L (15-37) Alanine Aminotransferase (ALT/SGPT) 16 U/L (12-78) Alkaline Phosphatase 55 U/L (45-117) C-Reactive Protein 0.46 mg/dl (0-0.29) Total Protein 8.2 gm/dl (6.4-8.2) Albumin 4.0 gm/dl (3.4-5.0) Lipase 89 U/L (73-393) Erythrocyte Sedimentation Rate 10 mm/hr (0-21) Human Chorionic Gonadotropin, Qual NEG (NEG) Urine Color YELLOW Urine Appearance CLOUDY (CLEAR) Urine pH 5.0 (4.5-7.5) Urine Specific [place] 1.020 (1.000-1.030) Urine Protein NEG (NEG) Urine Glucose (UA) NEG (NEG) Urine Ketones TRACE (NEG) Urine Occult Blood 3+ (NEG) Urine Nitrite NEG (NEG) Urine Bilirubin NEG (NEG) Urine Urobilinogen NEG (NEG) Urine Leukocyte Esterase NEG (NEG) Urine WBC (Auto) 1-5 /hpf (0-5) Urine RBC (Auto) 10-30 /hpf (0-4) Urine Hyaline Casts (Auto) 1-5 /lpf (0-5) Urine Epithelial Cells (Auto) >30 /lpf (0-5) Urine Bacteria (Auto) NEG (NEG) Urine Test NEG (NEG) Labs reviewed by ED physician. Medications Administered Medications (Trade) Dose Ordered Sig/Alon Route Start Time Stop Time Status Last Admin Dose Admin Sodium Chloride 1,000 ml @ 999 mls/hr Q1H1M STAT IV 12/25/17 18:46 12/25/17 19:46 DC 12/25/17 19:28 999 MLS/HR Ketorolac Tromethamine (Toradol Inj) 30 mg NOW STAT IV 12/25/17 18:46 12/25/17 18:49 DC 12/25/17 19:29 30 MG Prochlorperazine Edisylate (Compazine Inj) 5 mg NOW STAT IV 12/25/17 18:46 12/25/17 18:49 DC 12/25/17 19:28 5 MG Diphenhydramine HCl (Benadryl Inj) 50 mg NOW STAT IV 12/25/17 18:46 12/25/17 18:49 DC 12/25/17 19:28 50 MG Magnesium Sulfate (Magnesium Sulfate 1gm / D5W) 1 gm NOW STAT IV 12/25/17 18:46 12/25/17 18:49 DC 12/25/17 19:29 1 GM Metoclopramide HCl (Reglan Inj) 10 mg NOW STAT IV 12/25/17 20:01 12/25/17 20:02 DC 12/25/17 20:15 10 MG Ondansetron HCl (Zofran Inj) 4 mg NOW STAT IV 12/25/17 20:53 12/25/17 20:54 DC 12/25/17 21:39 4 MG Valproate Sodium 500 mg/Dextrose 55 ml @ 55 mls/hr NOW STAT IV 12/25/17 20:53 12/25/17 21:52 DC 12/25/17 21:39 55 MLS/HR Dexamethasone Sodium Phosphate 10 mg/Syringe 2.5 ml @ 1 mls/min NOW STAT IV 12/25/17 20:53 12/25/17 20:55 DC 12/25/17 21:39 1 MLS/MIN ED Course 1841: Past medical records reviewed. The patient was evaluated in room C01B. A complete history and physical examination was performed. 1845: Ordered Magnesium Sulfate 1gm IV, Benadryl 50mg IV, Compazine 5mg IV, Toradol 30mg IV, Sodium Chloride 1000 ml @ 999 mls/hr IV 2000: Ordered Reglan 10mg IV 2052: Ordered Dexamethasone Sodium Phosphate 10mg/Syringe 2.5 ml @ 1 mls/min, Valproate Sodium 500mg/Dextrose 55 ml @ 55 mls/hr IV, Zofran 4mg IV 2153: Upon reexamination the patient is resting and still in mild distress. I informed her of her PDMP review and how the state will not allow me to give her anymore pain medication. I discussed results and treatment plan with the patient. She verbalizes agreement and understanding. The patient is ready for discharge. 2199: Ordered Dicyclomine HCl 1ea PO Medical Decision Etiologies such as appendicitis, diverticulitis, PUD, biliary pathology, UTI, pancreatitis, obstruction, mesenteric ischemia, aortic pathology, infections, inflammatory bowel disease, renal colic, as well as others were entertained. This is a 27-year-old female who presents the emergency department complaining of headache as well as abdominal pain. The patient has no evidence of meningitis or encephalitis on examination. In addition she is afebrile does not have an elevation in her white blood cell count. She has a normal renal profile. An IV was established, the patient was given a Toradol Compazine as well as Benadryl. She was sent for CAT scan of the abdomen pelvis with oral contrast. This showed what appears to be consistent with a Crohn's flare. The patient was also given valproic acid as well as Decadron and magnesium in the emergency department. Repeat examination revealed improvement the patient's symptoms. I do feel that the patient can be safely discharged home however I did contact case management to get in touch with the patient's GI physician so that she can have follow-up tomorrow. Patient and family were in agreement with the treatment plan. She was given Bentyl as well as stool softeners for home. [place] Drug Monitoring Program Search Results: patient reviewed within database, see additional documentation Drug Monitoring Findings: Pt had 100 Narco filled on the 12 of December. Medication Reconcilliation Current Medication List: was personally reviewed by me Blood Pressure Screening Patient's blood pressure: Normal blood pressure Blood pressure disposition: Did not require urgent referral Impression Primary Impression: Vomiting Scribe Attestation The scribe's documentation has been prepared under my direction and personally reviewed by me in its entirety. I confirm that the note above accurately reflects all work, treatment, procedures, and medical decision making performed by me. Departure Information Dispostion Home / Self-Care Prescriptions Docusate Sodium (COLACE) 100 Mg Cap 1 CAP PO BID for 30 Days, #60 CAP Prov: Abner Kebede MD 12/25/17 Sennosides (SENOKOT) 8.6 Mg Tab 8.6 MG PO HS for 30 Days, #30 TAB Prov: Abner Kebede MD 12/25/17 Dicyclomine Hcl (BENTYL) 10 Mg Cap 10 MG PO TID for 10 Days, #30 CAP Prov: Abner Kebede MD 12/25/17 Referrals Chuck Aggarwal D.O. Hester, Christopher E., M.D. Forms HOME CARE DOCUMENTATION FORM, IMPORTANT VISIT INFORMATION, School Instructions, Work Instructions Patient Instructions Disease Crohn Dc, My [facility] Additional Instructions Follow up with Dr Aggarwal's office tomorrow You were found to have an elevated blood pressure today (>120 sytolic or >90 diastolic). Per medicare guidelines, you need to follow up with this blood pressure screening with your Primary Care Physician (PCP). For a new PCP call [phone]. You received narcotic or benzodiazepene medication while in the emergency room today. This is an addictive medication that may cause drowziness as well as constipation. Do not drive, operate heavy machinery, or drink alcohol under the influence of this medication. Take 600 mg Ibuprofen every 6 hours Take Bentyl for breakthrough pain You have been examined and treated today on an emergency basis only. This is not a substitute for, or an effort to provide, complete comprehensive medical care. It is impossible to recognize and treat all injuries or illnesses in a single emergency department visit. It is therefore important that you follow up closely with Dr Redman. Call as soon as possible for an appointment. Thank you for your time and consideration. I look forward to speaking with you again soon. Please don't hesitate to call us if you have any questions. Problem Qualifiers Primary Impression: Vomiting Vomiting type: unspecified Vomiting Intractability: unspecified Nausea presence: unspecified Qualified Codes: R11.10 - Vomiting, unspecified
[2017-12-25] MEDS ORDERED: OPTIRAY 320 IV PRN (19:00)
[2017-12-25] MEDS ORDERED: CERT200K INJ (19:22)
[2017-12-25] MEDS ORDERED: ACET-1256 PO (19:22)
[2017-12-25 19:28] LABS: BASO % 0.4 %; BASO ABS # 0.03 K/uL (0-0.2); EOS % 1.5 %; EOS ABS # 0.12 K/uL (0-0.5); HEMATOCRIT 39.7 % (37-47); HEMOGLOBIN 13.6 g/dL (12.0-16.0); IG# 0.02 K/uL (0.00-0.02); LYMPH % 18.5 %; LYMPH ABS # 1.52 K/uL (1.2-3.4); MEAN CELL VOLUME 83.9 fL (80-100); MEAN CORPUSCULAR HEMOGLOBIN 28.8 pg (25-34); MEAN CORPUSCULAR HGB CONC 34.3 g/dl (32-36); MEAN PLATELET VOLUME 9.3 fL (7.4-10.4); MONO % 3.7 %; NEUT % 75.7 %; NEUT ABS # 6.22 K/uL (1.4-6.5); PLATELET COUNT 320 K/uL (130-400); RED CELL DISTRIBUTION WIDTH CV 12.2 % (11.5-14.5); RED CELL DISTRIBUTION WIDTH SD 37.4 fL (36.4-46.3); WHITE BLOOD COUNT 8.21 K/uL (4.8-10.8)
[2017-12-25 19:45] LABS: CREATININE 0.75 mg/dl (0.60-1.20)
[2017-12-25 19:48] LABS: TOTAL PROTEIN 8.2 gm/dl (6.4-8.2)
[2017-12-25] MEDS ORDERED: METOCLOPRAMIDE HCL INJ 5 MG/ML 2 ML VIAL IV STA (20:01)
[2017-12-25] MEDS ORDERED: VALPROATE SOD IV 500 MG in DEXTROSE 5% 50ML 50 ML IV STA (20:53)
[2017-12-25] MEDS ORDERED: ONDANSETRON INJ 2 MG/ML 2 ML VIAL IV STA (20:53)
[2017-12-25] MEDS ORDERED: DEXAMETHASONE INJ 10 MG in SYRINGE 0 ML IV STA (20:53)
[2017-12-25] MEDS ORDERED: DEXAMETHASONE **PF** INJ 10 MG/ML VIAL ONE (21:17)
--- NOTE | 2017-12-25 21:37 | DIAGNOSTIC IMAGING REPORT ---
ABD/PELVIS IV AND ORAL CONT CT DOSE: 319.60 mGy.cm HISTORY: Crohn's disease. Pain. Pt c/o diffuse abd pain, hx of crohns TECHNIQUE: Multiaxial CT images of the abdomen and pelvis were performed following the use of intravenous and oral contrast. A dose lowering technique was utilized adhering to the principles of ALARA. COMPARISON STUDY: None. FINDINGS: Lung bases are clear. Liver spleen and pancreas are unremarkable. The kidneys enhance uniformly. The upper abdominal bowel pattern is nonobstructive. There are several small reactive mesenteric nodes. There are findings of a short segment approximately 6 cm in length of the terminal ileum demonstrating circumferential wall thickening. This suggestive of potential inflammatory bowel change and/or Crohn's. No evidence for abscess collection or obstruction. No evidence for pericecal infiltrative change and/or appendicitis. Nonobstructive bowel pattern. No evidence for abscess or obstruction. Additional wall thickening involving a 15 cm segment centimeter length of the distal small bowel within the right central pelvis. This again suggests the possibility of Crohn's disease. No free fluid within the pelvic cul-de-sac. Uterus is anteflexed. No evidence for ovarian enlargement. IMPRESSION: 1. Circumferential wall thickening of a short segment loop of terminal ileum as well as a longer 15 cm length of distal small bowel within the right central pelvis. 2. This appearance is consistent with that of Crohn's disease. 3. No evidence for abscess collection or obstruction. The above report was generated using voice recognition software. It may contain grammatical, syntax or spelling errors. Electronically signed by: Donell Mccormick M.D. 12/25/2017 9:35 PM Dictated Date/Time: 12/25/2017 9:32 PM
[2017-12-25] MEDS ORDERED: OXYCODONE IR HOME PACK PO STA (22:00)
[2017-12-25] MEDS ORDERED: BENTYL HOME PACK 10 MG VIAL PO STA (22:00)
[2017-12-25] MEDS ORDERED: DOCU-94 PO (22:04)
[2017-12-25] MEDS ORDERED: DICY10CA55 PO (22:04)
[2017-12-25] MEDS ORDERED: SENN1TAB77 PO (22:04)
[2017-12-25 22:46] VITALS: BP 116/62; PULSE 85; O2SAT 98
== END 2017-12-25 22:47 | disposition home or self-care (01) ==
LOC: C.EDB 18:17 → C.EDC 22:47
DX: R11.10 Vomiting, unspecified (principal); K50.90 Crohn's disease, unspecified, without complications; G43.909 Migraine, unspecified, not intractable, without status migrainosus; Z83.3 Family history of diabetes mellitus; Z82.49 Family history of ischemic heart disease and other diseases of the circulatory system; Z79.899 Other long term (current) drug therapy

== ENCOUNTER → 2018-01-07 | Outpatient (CLI) | payer OTHER ==
[~2018-01-07] MED LIST changes: +ACET-1256 PO; -ACET-1693 PO; +CERT200K INJ; +DOCU-94 PO; -ENT3 PO; +SENN1TAB77 PO
== END | disposition home or self-care (01) ==
LOC: C.PAPS 12:33
PROVIDERS: ATTEND Internal Medicine
DX: Z00.00 Encounter for general adult medical examination without abnormal findings (principal); R87.612 Low grade squamous intraepithelial lesion on cytologic smear of cervix (LGSIL)

== ENCOUNTER → 2018-04-14 | Outpatient (CLI) | payer OTHER ==
[~2018-04-14] MED LIST changes: -ACET-1256 PO; -DOCU-94 PO; +HYDR-5688 PO; -ONDA4TAB10 SL; -SENN1TAB77 PO
[2018-04-14 17:13] LABS: ALBUMIN 4.1 gm/dl (3.4-5.0); ALKALINE PHOSPHATASE 48 U/L (45-117); ALT/SGPT 14 U/L (12-78); AST/SGOT 8 U/L (15-37); CREATININE 0.77 mg/dl (0.60-1.20); TRANSFERRIN 239 mg/dl (200-360)
[2018-04-14 17:16] LABS: BASO % 0.3 %; BASO ABS # 0.03 K/uL (0-0.2); EOS ABS # 0.19 K/uL (0-0.5); HEMATOCRIT 38.6 % (37-47); HEMOGLOBIN 12.8 g/dL (12.0-16.0); IG# 0.03 K/uL (0.00-0.02); LYMPH % 33.3 %; LYMPH ABS # 3.23 K/uL (1.2-3.4); MEAN CELL VOLUME 85.8 fL (80-100); MEAN CORPUSCULAR HEMOGLOBIN 28.4 pg (25-34); MEAN CORPUSCULAR HGB CONC 33.2 g/dl (32-36); MEAN PLATELET VOLUME 9.4 fL (7.4-10.4); MONO % 5.5 %; MONO ABS # 0.53 K/uL (0.11-0.59); NEUT % 58.6 %; NEUT ABS # 5.69 K/uL (1.4-6.5); PLATELET COUNT 306 K/uL (130-400); RED CELL DISTRIBUTION WIDTH CV 12.8 % (11.5-14.5); RED CELL DISTRIBUTION WIDTH SD 40.3 fL (36.4-46.3)
[2018-04-16 10:46] LABS: QUANTIF MITOGEN-NIL 7.84 IU/ML; QUANTIFERON NEGATIVE (NEGATIVE); QUANTIFERON NIL 0.03 IU/ML
== END | disposition home or self-care (01) ==
LOC: C.LAB1850 15:48
PROVIDERS: ATTEND Internal Medicine
DX: K50.80 Crohn's disease of both small and large intestine without complications (principal); M45.0 Ankylosing spondylitis of multiple sites in spine; Z79.899 Other long term (current) drug therapy

== ENCOUNTER 2022-03-22 01:20 | Inpatient (IN) ==
[2022-03-22] MEDS ORDERED: SODIUM CHLORIDE 0.9% 1000ML 1,000 ML IV STA (01:42)
[2022-03-22] MEDS ORDERED: MoRPHine SULFATE 4 MG/ML 1 ML CARP\\VIAL IV STA ×2 (01:42→05:58)
[2022-03-22] MEDS ORDERED: ONDANSETRON INJ 2 MG/ML 2 ML VIAL IV STA (01:42)
[2022-03-22 01:57] LABS: Basophils # (auto) 0.05 K/uL (0-0.2); Basophils % (auto) 0.4 %; Eosinophils # (auto) 0.13 K/uL (0-0.50); Eosinophils % (auto) 0.9 %; Hematocrit (blood only) 41.5 % (34.1-44.9); Immature Granulocytes # (auto) 0.03 K/uL (0.00-0.02); Immature Granulocytes % (auto) 0.2 %; Lymphocytes # (auto) 2.68 K/uL (1.2-3.4); Lymphocytes % (auto) 19.5 %; Mean Corpuscular Hemoglobin 27.9 pg (25.0-34.0); Mean Corpuscular Hgb Conc 33.7 g/dL (32.0-36.0); Mean Corpuscular Volume 82.8 fL (80.0-100.0); Mean Platelet Volume 9.6 fL (9.4-12.3); Monocytes # (auto) 0.82 K/uL (0.24-0.82); Neutrophils # (auto) 10.01 K/uL (1.4-6.5); Platelet Count 283 K/uL (130-400); RDW Coefficient of Variation 12.6 % (11.5-14.5); RDW Standard Deviation 37.9 fL (36.4-46.3); Red Blood Count 5.01 M/uL (3.93-5.22); White Blood Count 13.72 K/ul (4.8-10.8)
--- NOTE | 2022-03-22 02:03 | Emergency Department Note ---
History of Present Illness General Chief complaint: Vomiting Stated complaint: CROHNS DISEASE, VOMITING Time Seen by Provider: 03/22/22 01:38 History of Present Illness Maximum Pain Intensity: 7 This 31-year-old with Crohn's on Remicade presents to the ER complaining of pain with vomiting concerning for Crohn's flare Location: Abdomen Quality: Painful Severity: Moderate Duration: Past few days Timing: Started few days ago Context: Patient was concerned and came in Modifying factors: better with rest; worse with activity Patient denies chest pain, dyspnea, fevers, flulike illness, blood in the stool, diarrhea, mucus in the stool. She has had bowel obstructions before. Home Medications Medication Instructions Recorded Confirmed Type folic acid 1 mg tablet 1 mg PO QAM 11/24/18 03/22/22 History rizatriptan 5 mg disintegrating 5 mg PO UD PRN Migraine Headache 03/21/20 03/22/22 History tablet infliximab-dyyb 100 mg intravenous See Rx Instructions IV Q8WK #3 ea 10/24/21 03/22/22 Rx solution (Inflectra) cholecalciferol (vitamin D3) 25 25 mcg PO DAILY 03/22/22 03/22/22 History mcg (1,000 unit) capsule (Vitamin D3) ondansetron HCl 4 mg tablet 4 mg PO TID PRN NAUSEA/VOMITING 03/22/22 03/22/22 History pantoprazole 40 mg tablet,delayed 40 mg PO DAILY 03/22/22 03/22/22 History release Allergies Allergy/AdvReac Type Severity Reaction Status Date / Time No Known Allergies Allergy Verified 03/22/22 01:55 Past Med/Surg History Medical History (Updated 03/22/22 @ 13:36 by Chuck Aggarwal, DO) Ankylosing spondylitis Anxiety Bilateral sacroiliitis Chronic back pain Common migraine without aura Crohn's disease of both small and large intestine Lymphadenopathy Nausea Spondyloarthropathy Vitamin D deficiency Surgical History H/O wisdom tooth extraction History of colonoscopy History of esophagogastroduodenoscopy (EGD) Family History Other No family history of adverse response to anesthesia Social History Smoking Status: Never smoker Second Hand Exposure: No; Hx Alcohol Use: No Hx Substance Use: Yes Preferred Language: Fijian Communication Ability: Effective Audiovisual Aids Technician Required: No Beliefs That Will Affect Care: None Current Living Situation: Spouse Feels Safe at Home: Yes Assistive Devices: None Review of Systems A total of 10 systems reviewed and were otherwise negative Physical Exam Vital Signs Vital Signs - 24 hr 03/22/22 01:26 03/22/22 01:42 03/22/22 03:11 Temperature 36.6 C Temperature Source Temporal Artery Scan Pulse Rate 72 Pulse Rate [Apical] 52 L Pulse Rhythm Regular Pulse Strength Normal Respiratory Rate 20 18 Respiratory Effort / Characteristics Non-Labored Spontaneous Non-Labored Spontaneous Respiratory Depth Normal Normal Respiratory Pattern Regular Regular Blood Pressure 109/64 Blood Pressure [Left Arm] 94/64 L Blood Pressure Mean 79 Blood Pressure Mean [Left Arm] 74 Blood Pressure Position Sitting Blood Pressure Position [Left Arm] Lying Pulse Oximetry 100 97 99 Oxygen Delivery Method Room Air Room Air Room Air Sepsis Recent Fever Within 48 Hours No Sepsis New/Unexplained Change in Mental Status No Sepsis Action Taken by Nursing No Action Required 03/22/22 04:49 03/22/22 05:54 Temperature Temperature Source Pulse Rate Pulse Rate [Apical] 62 59 L Pulse Rhythm Pulse Strength Respiratory Rate 16 18 Respiratory Effort / Characteristics Non-Labored Spontaneous Respiratory Depth Normal Respiratory Pattern Regular Blood Pressure Blood Pressure [Left Arm] 102/55 L 118/77 Blood Pressure Mean Blood Pressure Mean [Left Arm] 70 90 Blood Pressure Position Blood Pressure Position [Left Arm] Lying Pulse Oximetry 99 97 Oxygen Delivery Method Room Air Room Air Sepsis Recent Fever Within 48 Hours Sepsis New/Unexplained Change in Mental Status Sepsis Action Taken by Nursing VITALS: Vitals are noted on the nurse's note and reviewed by myself. Vital signs stable. GENERAL: Pleasant female, in no acute distress, nondiaphoretic, well-developed well-nourished. SKIN: The skin was without rashes, erythema, edema, or bruising. There is no tenting of the skin. Capillary reflex less than 2 seconds. HEAD: Normocephalic atraumatic. EARS: External auditory canals clear, EYES: Pupils equal round and reactive to light and accommodation. Conjunctivae without injection, sclerae without icterus. Extraocular movements intact. NOSE: Patent, turbinates without inflammation or discharge. MOUTH: Mucous membranes moist. Pharynx without erythema or exudate. Uvula midline. Airway patent. Tongue does not deviate. NECK: Supple without nuchal rigidity. No lymphadenopathy. No thyromegaly. Cervical spine is nontender. No JVD. HEART: Regular rate and rhythm LUNGS: Clear to auscultation bilaterally without wheezes, rales or rhonchi. No retractions or accessory muscle use. ABDOMEN: Positive bowel sounds x 4. Normal tympanic percussion. Soft, tender to palpation lower abdomen, without masses or organomegaly. Tucker sign negative. No guarding or rebound tenderness. No CVA tenderness MUSCULOSKELETAL: No muscle atrophy, erythema, or edema noted. NEURO: Patient was alert and oriented to person place and time. Normal sensation to light and sharp touch. No focal neurological deficits. Course Administered Medications Folic Acid (Folic Acid 1 Mg Tab) 1 mg PO QAM [facility] Stop: 04/21/22 12:29 Last Admin: 03/22/22 12:44 Dose: 1 mg Documented By: CLAUDIA Lactated Ringer's (Lr) 1,000 mls @ 125 mls/hr IV .Q8H [facility] Stop: 03/23/22 12:05 Last Admin: 03/22/22 19:39 Dose: 125 mls/hr Documented By: Infusion: 03/22/22 19:39 Dose: 125 mls/hr Documented By: Admin: 03/22/22 12:50 Dose: 125 mls/hr Documented By: CLAUDIA Methylprednisolone 40 mg/ (Syringe) 0.64 mls @ 1.5 mls/min IV BID NADIYA Stop: 04/21/22 20:59 Last Admin: 03/22/22 20:54 Dose: 1.5 mls/min Documented By: TIMI Metoclopramide HCl (Metoclopramide Hcl Inj 5 Mg/Ml 2 Ml Vial) 5 mg IV Q6H PRN PRN Reason: Nausea Stop: 04/21/22 11:59 Last Admin: 03/22/22 17:27 Dose: 5 mg Documented By: Admin: 03/22/22 11:33 Dose: 5 mg Documented By: CLAUDIA Morphine Sulfate (Morphine Sulfate 2 Mg/Ml Carp) 2 mg IV Q4H PRN PRN Reason: Moderate Pain (4,5,6) on NRS Stop: 04/05/22 11:22 Last Admin: 03/22/22 11:33 Dose: 2 mg Documented By: CLAUDIA Morphine Sulfate (Morphine Sulfate 4 Mg/Ml 1 Ml Carp\Vial) 4 mg IV Q4H PRN PRN Reason: Severe Pain (7,8,9,10) on NRS Stop: 04/05/22 11:22 Last Admin: 03/22/22 20:57 Dose: 4 mg Documented By: Admin: 03/22/22 16:02 Dose: 4 mg Documented By: CLAUDIA Pantoprazole Sodium (Pantoprazole 40 Mg Tab) 40 mg PO DAILY NADIYA Stop: 04/21/22 12:29 Last Admin: 03/22/22 12:44 Dose: 40 mg Documented By: CLAUDIA Vitamin D (Cholecalciferol 1,000 Units 25 Mcg Tab) 1,000 units PO DAILY NADIYA Stop: 04/21/22 12:29 Last Admin: 03/22/22 12:46 Dose: 1,000 units Documented By: CLAUDIA Discontinued Medications Sodium Chloride (Nss 1000ml) 1,000 mls @ 999 mls/hr IV .Q1H1M STA Stop: 03/22/22 02:42 Last Infusion: 03/22/22 02:51 Dose: 0 mls/hr Documented By: Admin: 03/22/22 01:50 Dose: 999 mls/hr Documented By: KENY Sodium Chloride (Nss) 500 mls @ 80 mls/hr IV .Q6H15M NADIYA Stop: 04/21/22 05:59 Last Infusion: 03/22/22 15:14 Dose: 0 mls/hr Documented By: Admin: 03/22/22 06:04 Dose: 80 mls/hr Documented By: KENY Methylprednisolone 60 mg/ (Syringe) 0.96 mls @ 1.5 mls/min IV DAILY NADIYA Stop: 04/21/22 12:29 Last Admin: 03/22/22 12:46 Dose: 1.5 mls/min Documented By: CLAUDIA Ioversol (Optiray 320 100ml) 100 ml IV ONCE ONE Stop: 03/22/22 02:46 Last Admin: 03/22/22 02:46 Dose: 93 ml Documented By: ARPAN Metoclopramide HCl (Metoclopramide Hcl Inj 5 Mg/Ml 2 Ml Vial) 5 mg IV ONE ONE Stop: 03/22/22 02:17 Last Admin: 03/22/22 02:20 Dose: 5 mg Documented By: KENY Metoclopramide HCl (Metoclopramide Hcl Inj 5 Mg/Ml 2 Ml Vial) 5 mg IV ONE ONE Stop: 03/22/22 05:59 Last Admin: 03/22/22 06:03 Dose: 5 mg Documented By: KENY Morphine Sulfate (Morphine Sulfate 4 Mg/Ml 1 Ml Carp\Vial) 4 mg IV NOW STA Stop: 03/22/22 01:43 Last Admin: 03/22/22 01:50 Dose: 4 mg Documented By: KENY Morphine Sulfate (Morphine Sulfate 4 Mg/Ml 1 Ml Carp\Vial) 4 mg IV NOW STA Stop: 03/22/22 05:59 Last Admin: 03/22/22 06:03 Dose: 4 mg Documented By: KENY Ondansetron HCl (Ondansetron Inj 2 Mg/Ml 2 Ml Vial) 4 mg IV NOW STA Stop: 03/22/22 01:43 Last Admin: 03/22/22 01:50 Dose: 4 mg Documented By: KENY Medical Decision Making Medical Records Attestation: I reviewed the patient's medical records. Home Medications Current Medication List: was personally reviewed by me Laboratory Data Attestation: I reviewed the patient's lab results. Result diagrams: 03/22/22 01:38 03/22/22 01:38 Lab Results 03/22/22 03/22/22 03/22/22 Range/Units 01:38 01:38 01:38 WBC 13.72 H (4.8-10.8) K/ul RBC 5.01 (3.93-5.22) M/uL Hgb 14.0 (12.0-16.0) g/dl Hct 41.5 (34.1-44.9) % MCV 82.8 (80.0-100.0) fL MCH 27.9 (25.0-34.0) pg MCHC 33.7 (32.0-36.0) g/dL RDW Std Deviation 37.9 (36.4-46.3) fL RDW Coeff of Jose 12.6 (11.5-14.5) % Plt Count 283 (130-400) K/uL MPV 9.6 (9.4-12.3) fL Immature Gran % (Auto) 0.2 % Neut % (Auto) 73.0 % Lymph % (Auto) 19.5 % Florence % (Auto) 6.0 % Eos % (Auto) 0.9 % Baso % (Auto) 0.4 % Neut # (Auto) 10.01 H (1.4-6.5) K/uL Lymph # (Auto) 2.68 (1.2-3.4) K/uL Florence # (Auto) 0.82 (0.24-0.82) K/uL Eos # (Auto) 0.13 (0-0.50) K/uL Baso # (Auto) 0.05 (0-0.2) K/uL Immature Gran # (Auto) 0.03 H (0.00-0.02) K/uL ESR 10 (0-20) mm/hr Sodium 136 (136-145) mmol/L Potassium 4.0 (3.5-5.1) mmol/L Chloride 102 (98-107) mmol/L Carbon Dioxide 24 (21-32) mmol/L Anion Gap 10 (3-11) BUN 13 (6-23) mg/dl Creatinine 0.78 (0.6-1.2) mg/dl Est Cr Clr Drug Dosing 95.8 ml/min Est GFR ( Amer) 119.1 ml/min Est GFR (Non-Af Amer) 102.7 ml/min BUN/Creatinine Ratio 16.7 (10-20) Glucose 111 H (70-99(Fasting)) mg/dl Calcium 9.6 (8.5-10.1) mg/dl Total Bilirubin 1.4 H (0.2-1.0) mg/dl AST 14 (13-39) U/L ALT 11 (7-52) U/L Alkaline Phosphatase 35 (34-104) U/L C-Reactive Protein < 0.50 (0-0.5) mg/dl Total Protein 7.9 (6.0-8.3) gm/dl Albumin 4.6 (3.4-5.0) gm/dl Globulin 3.3 (2.5-4.0) gm/dl Albumin/Globulin Ratio 1.4 (0.9-2) Lipase 13 (11-82) U/L HCG, Qual (Negative) Urine Color Urine Appearance (Clear) Urine pH (4.5-7.5) Ur Specific Rake (1.000-1.030) Urine Protein (Negative) Urine Glucose (UA) (Negative) Urine Ketones (Negative) Urine Blood (Negative) Urine Nitrite (Negative) Urine Bilirubin (Negative) Urine Urobilinogen (Negative) Ur Leukocyte Esterase (Negative) Urine WBC (Auto) (0-5) /hpf Urine RBC (Auto) (0-4) /hpf U Hyaline Cast (Auto) (0-5) /lpf U Epithel Cells (Auto) (0-5) /lpf Urine Bacteria (Auto) (Negative) Urine Mucus (None Prsent) SARS-CoV-2, RNA, NAAT (NEGATIVE) 03/22/22 03/22/22 03/22/22 Range/Units 01:38 05:48 06:06 WBC (4.8-10.8) K/ul RBC (3.93-5.22) M/uL Hgb (12.0-16.0) g/dl Hct (34.1-44.9) % MCV (80.0-100.0) fL MCH (25.0-34.0) pg MCHC (32.0-36.0) g/dL RDW Std Deviation (36.4-46.3) fL RDW Coeff of Jose (11.5-14.5) % Plt Count (130-400) K/uL MPV (9.4-12.3) fL Immature Gran % (Auto) % Neut % (Auto) % Lymph % (Auto) % Florence % (Auto) % Eos % (Auto) % Baso % (Auto) % Neut # (Auto) (1.4-6.5) K/uL Lymph # (Auto) (1.2-3.4) K/uL Florence # (Auto) (0.24-0.82) K/uL Eos # (Auto) (0-0.50) K/uL Baso # (Auto) (0-0.2) K/uL Immature Gran # (Auto) (0.00-0.02) K/uL ESR (0-20) mm/hr Sodium (136-145) mmol/L Potassium (3.5-5.1) mmol/L Chloride (98-107) mmol/L Carbon Dioxide (21-32) mmol/L Anion Gap (3-11) BUN (6-23) mg/dl Creatinine (0.6-1.2) mg/dl Est Cr Clr Drug Dosing ml/min Est GFR ( Amer) ml/min Est GFR (Non-Af Amer) ml/min BUN/Creatinine Ratio (10-20) Glucose (70-99(Fasting)) mg/dl Calcium (8.5-10.1) mg/dl Total Bilirubin (0.2-1.0) mg/dl AST (13-39) U/L ALT (7-52) U/L Alkaline Phosphatase (34-104) U/L C-Reactive Protein (0-0.5) mg/dl Total Protein (6.0-8.3) gm/dl Albumin (3.4-5.0) gm/dl Globulin (2.5-4.0) gm/dl Albumin/Globulin Ratio (0.9-2) Lipase (11-82) U/L HCG, Qual Negative (Negative) Urine Color Yellow Urine Appearance Clear (Clear) Urine pH 5.0 (4.5-7.5) Ur Specific Rake > 1.045 H (1.000-1.030) Urine Protein Trace H (Negative) Urine Glucose (UA) Negative (Negative) Urine Ketones 4+ H (Negative) Urine Blood Negative (Negative) Urine Nitrite Negative (Negative) Urine Bilirubin Negative (Negative) Urine Urobilinogen Negative (Negative) Ur Leukocyte Esterase Negative (Negative) Urine WBC (Auto) 1-5 (0-5) /hpf Urine RBC (Auto) 0-4 (0-4) /hpf U Hyaline Cast (Auto) 0 (0-5) /lpf U Epithel Cells (Auto) >30 H (0-5) /lpf Urine Bacteria (Auto) Negative (Negative) Urine Mucus Present A (None Prsent) SARS-CoV-2, RNA, NAAT NEGATIVE (NEGATIVE) Imaging Data Attestation: I personally reviewed and interpreted this imaging study as follows: MDM Narrative Prior records/ancillary studies reviewed. Triage Nursing notes reviewed. Additional history obtained from family. The patient's history was concerning for abdominal pain. Differential diagnosis: Etiologies such as appendicitis, diverticulitis, PUD, biliary pathology, UTI, pancreatitis, obstruction, mesenteric ischemia, aortic pathology, infections, inflammatory bowel disease, renal colic, as well as others were entertained. Physical examination findings: As above. ER treatment provided: An order was placed for continuous cardiac monitoring. The monitor shows a rate of 60-100 with a sinus rhythm. Fluids morphine Zofran On reassessment the patient felt better. Diagnostics interpreted by me: The labs revealed mild leukocytosis, negative hCG Negative inflammatory markers Imaging studies: Preliminary Findings Only See Final Report For Complete Findings CT ABDOMEN & PELVIS With Contrast: Dilated small bowel loops with air-fluid levels and fecalized bowel contents in the lower abdomen and pelvis. Transition point in the right pelvis where there is markedly thickened loop of distal/terminal ileum Consistent with small bowel obstruction. Obstruction likely due to thickened distal loop/Crohn's enteritis given history. Associated mesenteric edema in the pelvis. Small amount of free fluid in the abdomen and pelvis. Query thickening versus partial distention of the colon may reflect associated colitis Right ovarian corpus luteum. Small left renal low-density lesion Radiologist: Bernadine Duncan M.D. Consultation: A consultation was placed with the hospitalist. The case was discussed and diagnostics were reviewed. The patient was evaluated in the ER for further treatment. Exam and history seem consistent with small bowel obstruction with Crohn's. Medicine was consulted. Patient was hydrated and medicated as above. She will be admitted. By the evaluation outlined above emergent etiologies such as appendicitis, diverticulitis, PUD, biliary pathology, UTI, pancreatitis, mesenteric ischemia, aortic pathology, infections, renal colic, as well as others were deemed relatively unlikely. The pt informed about the findings as listed above. All questions were answered and pleased with the treatment. The chart was completed utilizing [employer] Speech voice recognition software. Grammatical errors, random word insertions, pronoun errors, and incomplete sentences are an occassional consequence of this system due to software limitations, ambient noise, and hardware issues. Any formal questions or concerns about the content, text, or information contained within the body of this dictation should be directly addressed to the physician administrative assistant receptionist for clarification. Impression & Plan Acute Crohn's disease with intestinal obstruction Discharge Plan Visit Data Chief Complaint: Vomiting Stated Complaint: CROHNS DISEASE, VOMITING ED Provider: Anahy Barron ED Midlevel Provider: Yola Warren Discharge Problem: Acute Crohn's disease with intestinal obstruction Patient Disposition: Admitted As Inpatient Condition: Good Discharge Instructions Interventions: ED Discharge Assessment Last Done: 03/22/22 12:05
[2022-03-22 02:12] LABS: Alanine Aminotransferase 11 U/L (7-52); Albumin Globulin Ratio 1.4 (0.9-2); Albumin Level 4.6 gm/dl (3.4-5.0); Alkaline Phosphatase 35 U/L (34-104); Anion Gap 10 (3-11); Aspartate Aminotransferase 14 U/L (13-39); BUN Creatinine Ratio 16.7 (10-20); Bilirubin,Total 1.4 mg/dl (0.2-1.0); Blood Urea Nitrogen 13 mg/dl (6-23); C Reactive Protein < 0.50 mg/dl (0-0.5); Calcium 9.6 mg/dl (8.5-10.1); Carbon Dioxide 24 mmol/L (21-32); Chloride 102 mmol/L (98-107); Creatinine Clr Calc Pharmacy 95.8 ml/min; Est GFR (African American) 119.1 ml/min; Est GFR (Non-African American) 102.7 ml/min; Globulin 3.3 gm/dl (2.5-4.0); Glucose 111 mg/dl (70-99(Fasting)); Lipase 13 U/L (11-82); Sodium 136 mmol/L (136-145); Total Protein 7.9 gm/dl (6.0-8.3)
[2022-03-22 02:13] LABS: Pregnancy Test, Serum Negative (Negative)
[2022-03-22] MEDS ORDERED: METOCLOPRAMIDE HCL INJ 5 MG/ML 2 ML VIAL IV ONE ×2 (02:16→05:58)
[2022-03-22] MEDS ORDERED: OPTIRAY 320 100ml IV ONE (02:45)
[2022-03-22] MEDS ORDERED: SODIUM CHLORIDE 0.9% 500 ML IV SCH (06:00)
[2022-03-22 06:39] LABS: Appearance Urine Clear (Clear); Bacteria Urine Automated Negative (Negative); Bilirubin Urine Negative (Negative); Blood Urine Negative (Negative); Color Urine Yellow; Epithelial Cell Urine Auto >30 /lpf (0-5); Glucose Urine UA Negative (Negative); Ketones Urine 4+ (Negative); Leukocyte Esterase Urine Negative (Negative); Nitrite Urine Negative (Negative); Protein Urine Trace (Negative); RBC Urine Automated 0-4 /hpf (0-4); Specific Gravity Urine > 1.045 (1.000-1.030); Urobilinogen Urine Negative (Negative)
[2022-03-22 06:56] LABS: Cast Urine Automated 0 /lpf (0-5); Mucus Urine Present (None Prsent)
--- NOTE | 2022-03-22 08:04 | CT Scan Report ---
ABDOMEN AND PELVIS CT WITH IV CONTRAST CT DOSE: 292.03 mGy.cm HISTORY: lower abd pain, crohns TECHNIQUE: Multiaxial CT images of the abdomen and pelvis were performed following the use of intrave nous contrast. A dose lowering technique was utilized adhering to the principles of ALARA. COMPARISON STUDY: CT enterography 04/10/2020. FINDINGS: The lung bases are clear. No pneumoperitoneum. No pneumatosis. No fractures within the visu alized osseous structures. Mild periportal edema. Trace ascites is noted. The main portal vein is pat ent. The gallbladder, pancreas, spleen, and adrenal glands are unremarkable. No hydronephrosis. There is an 8 mm hypodense lesion within the left kidney. This is technically too small to characterize. N o retroperitoneal lymphadenopathy. Normal caliber abdominal aorta. The bladder is unremarkable. There is a 1.8 cm thick-walled cyst within the right ovary favoring a corpus luteum. The uterus and left o vary are unremarkable. Moderate to severe bowel wall thickening involving the distal [address] iman ileum which has progressed in the interval. Proximal to this the small bowel is distended with fecal material consistent with stasis in the setting of a small bowel obstruction. The small bowel me asures up to 3.7 cm in diameter. Questionable thickening of the colon may be due to underdistention. The visualized appendix is unremarkable. No perforation or abscess identified at this time. Mild bila teral sacroiliitis again noted. No fractures. IMPRESSION: 1. Moderate to severe bowel wall thickening involving the terminal ileum which has progressed in the interval. This is consistent with an ileitis in the setting of the patient's known Crohn's disease. 2. This thickened terminal ileum results in the transition point for the distal small bowel obstructi on. 3. Small amount of ascites. 4. Questionable thickening of the colon may be due to underdistention. 5. Normal appendix. ACT 112: Negative or not required by law. Electronically signed by: Bebo Bull M.D. 03/22/2022 8:01 AM
--- NOTE | 2022-03-22 08:18 | History & Physical Report ---
Date of Service March 22, 2022 Assessment & Plan (1) Ankylosing spondylitis: Plan: Lizeth is a 31-year-old female with history of Crohn's on Remicade who presented to the ER with abdominal pain, nausea, and vomiting and concern for a Crohn's flare. He has a history of prior bowel obstructions.On ER evaluation CT of the abdomen shows moderate to severe bowel wall thickening involving the terminal ileum progressive from prior, consistent with ileitis with known Crohn's disease. Thickened terminal ileum results and transition point with distal small bowel obstruction. Small bowel obstruction CT A/P: 1. Moderate to severe bowel wall thickening involving the terminal ileum which has progressed in the interval. This is consistent with an ileitis in the setting of the patient's known Crohn's disease. 2. This thickened terminal ileum results in the transition point for the distal small bowel obstruction.3. Small amount of ascites. 4. Questionable thickening of the colon may be due to underdistention.5. Normal appendix. N.p.o. LR 125 cc/h Morphine for breakthrough pain PRN - Zofran for nausea - +BMs this morning, nausea is slowly improvement by time of bedside assessment Crohn's disease with acute flare Progressive since prior imaging - CT-A/P: as noted Last seen by GI 10/23/2021, continued on Remicade/Protonix and scheduled for colonoscopy next month - Next remicaid due in April - +Methylprednisolone 60mg IV daily Ankylosing spondylitis - Remicaid helps with this as well. - Pending MTX refill. Was last on 4 months ago, is due to restart Migraine without aura May use triptan as needed - No headache at time of admission DVT: SCDs Diet: NPO Dispo: MEd/Surg (2) Psoriasis: (3) Acute Crohn's disease with intestinal obstruction: (4) Common migraine without aura: History of Present Illness Primary Care Provider: Wally Redman MD Lizeth is a 31-year-old female with history of Crohn's on Remicade who presented to the ER with abdominal pain, nausea, and vomiting and concern for a Crohn's flare. He has a history of prior bowel obstructions.On ER evaluation CT of the abdomen shows moderate to severe bowel wall thickening involving the terminal ileum progressive from prior, consistent with ileitis with known Crohn's disease. Thickened terminal ileum results and transition point with distal small bowel obstruction. 1 day nausea, vomiting, pain, and 2 days of bloating +emesis bilious/dark initially yellow and foamy +BMs since here, soft and not particularly loose. Has had 2 BMs since being in the ER. +abdominal tenderness Feels chills and sweaty with vomiting episodes. No fever, normal temperature. No problems peeing, no dysuria No ches tpain, chest pressure, Sob Notes has had some salads and nuts recently which have set off flares previously Medical History: Reviewed Medications: Reviewed Surgical History: Reviewed Allergies: Reviewed Social History: No tobacco, no etoh, +Med Mariujana which does help at home. Code Status: Full Code. Surrogate DM would be her Shawn. Allergies Allergy/AdvReac Type Severity Reaction Status Date / Time No Known Allergies Allergy Verified 03/22/22 01:55 Home Medications Medication Instructions Recorded Confirmed Type folic acid 1 mg tablet 1 mg PO QAM 11/24/18 03/22/22 History rizatriptan 5 mg disintegrating 5 mg PO UD PRN Migraine Headache 03/21/20 03/22/22 History tablet infliximab-dyyb 100 mg intravenous See Rx Instructions IV Q8WK #3 ea 10/24/21 03/22/22 Rx solution (Inflectra) cholecalciferol (vitamin D3) 25 25 mcg PO DAILY 03/22/22 03/22/22 History mcg (1,000 unit) capsule (Vitamin D3) ondansetron HCl 4 mg tablet 4 mg PO TID PRN NAUSEA/VOMITING 03/22/22 03/22/22 History pantoprazole 40 mg tablet,delayed 40 mg PO DAILY 03/22/22 03/22/22 History release Past Med/Surg History Medical History Ankylosing spondylitis Anxiety Bilateral sacroiliitis Chronic back pain Common migraine without aura Crohn's disease of both small and large intestine Lymphadenopathy Nausea Spondyloarthropathy Vitamin D deficiency Surgical History H/O wisdom tooth extraction History of colonoscopy History of esophagogastroduodenoscopy (EGD) Family History Other No family history of adverse response to anesthesia Social History Smoking Status: Never smoker Second Hand Exposure: No; Hx Alcohol Use: No Hx Substance Use: Yes (medical marijuana) Preferred Language: Serbian Communication Ability: Effective Field Handyman Required: No Beliefs That Will Affect Care: None Current Living Situation: Spouse Feels Safe at Home: Yes Assistive Devices: None Review of Systems Review of Systems: All systems reviewed & are unremarkable except as noted in Subjective Physical Exam Physical Exam: General: A&Ox3. NAD. Cooperative. Appears fatigued,. HEENT: Atraumatic, normocephalic. Vision/hearing grossly intact. Pulm: CTAB A&P. -wheezes, -rales, -rhonchi. Symmetrical chest rise. No increased work of breathing. No respiratory distress. Cardiac: RRR, +sm -rg. Radial pulses intact and symmetrical. Abdominal: Diffusely midly tender without rebound or focal tenderness. BS present but diminished. Results & Data Results & Data ([facility]) Vital Signs (Past 12 Hours) Vital Signs Temp Pulse Pulse Resp BP BP Pulse Ox 03/22/22 05:54 59 L 18 118/77 97 03/22/22 04:49 62 16 102/55 L 99 03/22/22 03:11 52 L 18 94/64 L 99 03/22/22 01:42 97 03/22/22 01:26 36.6 C 72 20 109/64 100 O2 Del Method 03/22/22 05:54 Room Air 03/22/22 04:49 Room Air 03/22/22 03:11 Room Air 03/22/22 01:42 Room Air 03/22/22 01:26 Room Air PG Care Time/CCT Total # of Minutes Spent Total Time Spent with Patient: Total time spent is greater than 50% in coordination of care (as documented) at patient's floor/unit and/or counseling patient: Coding Level of Care Code 17572 Initial Inpt Care Lvl 2 Diagnoses Ankylosing spondylitis M45.9 Psoriasis L40.9 Acute Crohn's disease with intestinal obstruction K50.912 Common migraine without aura G43.009
[2022-03-22] MEDS ORDERED: MoRPHine SULFATE 2 MG/ML CARP IV PRN (11:23)
[2022-03-22] MEDS: METOCLOPRAMIDE HCL INJ 5 MG/ML 2 ML VIAL IV PRN ×2 (11:33→17:27)
[2022-03-22] MEDS ORDERED: methylPREDNISolone 125 MG/2 ML VIAL IV SCH (12:06)
[2022-03-22] MEDS ORDERED: methylPREDNISolone 60 MG in SYRINGE 0 ML IV SCH (12:30)
[2022-03-22] MEDS: PANTOprazole 40 MG TAB PO SCH (12:44)
[2022-03-22] MEDS: FOLIC ACID 1 MG TAB PO SCH (12:44)
[2022-03-22] MEDS: CHOLECALCIFEROL 1,000 UNITS 25 MCG TAB PO SCH (12:46)
[2022-03-22] MEDS: LACTATED RINGER'S 1,000 ML IV SCH ×2 (12:50→19:39)
--- NOTE | 2022-03-22 13:30 | Gastrointestinal Consultation ---
Date of Consultation March 22, 2022 Assessment & Plan (1) Acute Crohn's disease with intestinal obstruction: Recommend Solumedrol 40 mg IV BID Will decrease her interval of Avsola from every 8 to every 6 weeks, and will increase her dose to 10 mg/kg Will check Avsola trough and Ab levels prior to her next infusion Continue Methotrexate 15 mg by mouth weekly Continue Folic acid 1 mg by mouth daily OK to give Ice chips at present Will follow her clinical course and make further recommendations as needed. History of Present Illness Reason for Consultation: Crohn's disease with SBO Attending Physician: Salty Arreola MD History of Present Illness Lizeth Natarajan is a pleasant 31 yo CF with a significant PMHx of Crohn's ileocolitis and Ankylosing spondylitis who presented to the ER with a 2 day history of abdominal pain in the mid lower abdomen, abdominal bloating, nausea, and vomiting. Upon arrival to the ER she underwent lab studies which showed a slightly elevated WBC count and a CT scan showed findings consistent with a SBO with the transition point at the terminal ileum consistent with Crohn's disease activity. She last underwent a colonoscopy in March 2020, and was noted to have Crohn's ileocolitis. She has been on Remicade 5 mg/kg every 8 weeks, and last received her infusion 5 weeks ago. She also is on Methotrexate therapy for treatment of Ankylosing spondylitis, as well as to prevent Ab formation to her Remicade therapy. Since her arrival, she was kept NPO, given IVF, and given IV steroids. She states that she is feeling slightly better now, but continues to have lower mid-abdominal pain, rated at 4/10 in intensity, non-radiating, without alleviating or exacerbating factors at present. She denies any fevers, chills, nausea, vomiting, hematemesis, melena, or hematochezia. She has no further complaints. Allergies Allergy/AdvReac Type Severity Reaction Status Date / Time No Known Allergies Allergy Verified 03/22/22 01:55 Home Medications Medication Instructions Recorded Confirmed Type folic acid 1 mg tablet 1 mg PO QAM 11/24/18 03/22/22 History rizatriptan 5 mg disintegrating 5 mg PO UD PRN Migraine Headache 03/21/20 03/22/22 History tablet infliximab-dyyb 100 mg intravenous See Rx Instructions IV Q8WK #3 ea 10/24/21 03/22/22 Rx solution (Inflectra) cholecalciferol (vitamin D3) 25 25 mcg PO DAILY 03/22/22 03/22/22 History mcg (1,000 unit) capsule (Vitamin D3) ondansetron HCl 4 mg tablet 4 mg PO TID PRN NAUSEA/VOMITING 03/22/22 03/22/22 History pantoprazole 40 mg tablet,delayed 40 mg PO DAILY 03/22/22 03/22/22 History release Patient History Medical History (Updated 03/22/22 @ 13:36 by Chuck Aggarwal, DO) Ankylosing spondylitis Anxiety Bilateral sacroiliitis Chronic back pain Common migraine without aura Crohn's disease of both small and large intestine Lymphadenopathy Nausea Spondyloarthropathy Vitamin D deficiency Surgical History H/O wisdom tooth extraction History of colonoscopy History of esophagogastroduodenoscopy (EGD) Family History Other No family history of adverse response to anesthesia Social History Smoking Status: Never smoker Second Hand Exposure: No; Hx Alcohol Use: No Hx Substance Use: Yes (medical marijuana) Preferred Language: Setswana Communication Ability: Effective Morgue Keeper Required: No Beliefs That Will Affect Care: None Current Living Situation: Spouse Feels Safe at Home: Yes Assistive Devices: None Physical Exam Constitutional: WD/WN, vitals as above Eyes: + anicteric sclerae and EOM intact bilaterally ENMT: external ear and nose normal, oropharynx normal Neck: trachea midline, no thyromegaly Respiratory: normal respiratory effort, lungs clear to auscultation Cardiovascular: RRR, no murmur, no edema Gastrointestinal (Abdomen): Inspection/Auscultation: abdomen normal to inspection and + abdomen distended; + abnormal bowel sounds Percussion/Palpation: + abdomen tender (Mid-lower abdomen) and abdomen soft Skin: no rashes, warm and dry Psychiatric: A+Ox3, euthymic affect Results & Data ([facility]) Vital Signs (Past 12 Hours) Vital Signs Pulse Pulse Resp BP BP Pulse Ox O2 Del Method 03/22/22 12:06 68 14 97 03/22/22 12:20 67 18 03/22/22 12:10 55 L 19 03/22/22 12:00 60 17 114/56 L 03/22/22 11:50 56 L 18 03/22/22 11:40 71 21 03/22/22 11:30 57 L 17 03/22/22 11:20 51 L 17 03/22/22 11:10 79 17 03/22/22 11:00 61 14 111/65 88 L 03/22/22 11:00 75 14 111/65 95 Room Air 03/22/22 09:28 65 18 111/65 98 Room Air 03/22/22 05:54 59 L 18 118/77 97 Room Air 03/22/22 04:49 62 16 102/55 L 99 Room Air 03/22/22 03:11 52 L 18 94/64 L 99 Room Air 03/22/22 01:42 97 Room Air PG Care Time/CCT Total # of Minutes Spent Total Time Spent with Patient: Total time spent is greater than 50% in coordination of care (as documented) at patient's floor/unit and/or counseling patient: Coding Level of Care Code 37743 Inpt Consult Level 4 Diagnoses Acute Crohn's disease with intestinal obstruction K50.912
[2022-03-22] MEDS: MoRPHine SULFATE 4 MG/ML 1 ML CARP\\VIAL IV PRN ×2 (16:02→20:57)
[2022-03-22] MEDS: methylPREDNISolone 40 MG in SYRINGE 0 ML IV SCH (20:54)
[2022-03-23] MEDS: LACTATED RINGER'S 1,000 ML IV SCH (03:39)
[2022-03-23] MEDS: METOCLOPRAMIDE HCL INJ 5 MG/ML 2 ML VIAL IV PRN (05:24)
[2022-03-23] MEDS: MoRPHine SULFATE 4 MG/ML 1 ML CARP\\VIAL IV PRN (05:27)
[2022-03-23 06:41] LABS: Basophils # (auto) 0.02 K/uL (0-0.2); Basophils % (auto) 0.1 %; Hematocrit (blood only) 36.6 % (34.1-44.9); Hemoglobin 12.5 g/dl (12.0-16.0); Immature Granulocytes # (auto) 0.08 K/uL (0.00-0.02); Immature Granulocytes % (auto) 0.5 %; Lymphocytes # (auto) 3.09 K/uL (1.2-3.4); Lymphocytes % (auto) 18.6 %; Mean Corpuscular Hgb Conc 34.2 g/dL (32.0-36.0); Mean Corpuscular Volume 81.9 fL (80.0-100.0); Mean Platelet Volume 10.1 fL (9.4-12.3); Monocytes # (auto) 1.18 K/uL (0.24-0.82); Monocytes % (auto) 7.1 %; Neutrophils # (auto) 12.23 K/uL (1.4-6.5); Neutrophils % (auto) 73.7 %; Platelet Count 263 K/uL (130-400); RDW Coefficient of Variation 12.4 % (11.5-14.5); Red Blood Count 4.47 M/uL (3.93-5.22)
[2022-03-23 07:07] LABS: Anion Gap 9 (3-11); BUN Creatinine Ratio 23.5 (10-20); Blood Urea Nitrogen 12 mg/dl (6-23); Calcium 8.5 mg/dl (8.5-10.1); Carbon Dioxide 23 mmol/L (21-32); Chloride 103 mmol/L (98-107); Creatinine Clr Calc Pharmacy 146.5 ml/min; Est GFR (African American) > 150.0 ml/min; Est GFR (Non-African American) 129.9 ml/min; Glucose 110 mg/dl (70-99(Fasting)); Potassium 4.1 mmol/L (3.5-5.1); Sodium 135 mmol/L (136-145)
[2022-03-23] MEDS ORDERED: ONDANSETRON INJ 2 MG/ML 2 ML VIAL IV PRN (07:47)
[2022-03-23] MEDS: PANTOprazole 40 MG TAB PO SCH (07:56)
[2022-03-23] MEDS: FOLIC ACID 1 MG TAB PO SCH (07:56)
[2022-03-23] MEDS: methylPREDNISolone 40 MG in SYRINGE 0 ML IV SCH ×2 (07:56→20:13)
[2022-03-23] MEDS: CHOLECALCIFEROL 1,000 UNITS 25 MCG TAB PO SCH (09:31)
--- NOTE | 2022-03-23 10:00 | Hospitalist Progress Note ---
Date of Service March 23, 2022 Assessment & Plan (1) Ankylosing spondylitis: Plan: Lizeth is a 31-year-old female with history of Crohn's on Remicade who presented to the ER with abdominal pain, nausea, and vomiting and concern for a Crohn's flare. He has a history of prior bowel obstructions.On ER evaluation CT of the abdomen shows moderate to severe bowel wall thickening involving the terminal ileum progressive from prior, consistent with ileitis with known Crohn's disease. Thickened terminal ileum results and transition point with distal small bowel obstruction. Small bowel obstruction CT A/P: 1. Moderate to severe bowel wall thickening involving the terminal ileum which has progressed in the interval. This is consistent with an ileitis in the setting of the patient's known Crohn's disease. 2. This thickened terminal ileum results in the transition point for the distal small bowel obstruction.3. Small amount of ascites. 4. Questionable thickening of the colon may be due to underdistention.5. Normal appendix. N.p.o., may have ice chips/sips. If pain continues to improve/doing well, trial clears LR 125 cc/h Morphine for breakthrough pain PRN - Zofran for nausea added back, is working for patient today whereas had not been working yesterday -Had BMs since admission Slight improvement today with Crohn's colitis treatment as below Crohn's disease with acute flare Progressive since prior imaging - CT-A/P: as noted Last seen by GI 10/23/2021, continued on Remicade/Protonix and scheduled for colonoscopy next month Continue Pred 40 mg IV twice daily, converted from 60 mg daily and received a total of 100mg 03/23-day of admission Continue methotrexate 15 mg by mouth weekly, Avsola interval decrease from 8 every 6 weeks per GI. Appreciate recommendations. Patient continues to have abdominal pain with slow progression today, continue to follow. IV fluids as above until diet adequately advanced Ankylosing spondylitis - Remicaid helps with this as well. -Tx as above No acute interventions for this at this time Migraine without aura May use triptan as needed - No headache at time of admission DVT: SCDs Diet: NPO Dispo: MEd/Surg (2) Psoriasis: (3) Acute Crohn's disease with intestinal obstruction: (4) Common migraine without aura: Admission and Anticipated Discharge Date Admission Date: March 22, 2022 Subjective Seen at bedside this morning. She reports she feels a little better than when she presented, about the same as last night. Zoan has worked well for her today, which is reassuring to her as this was not working at all when she was home. Does feel a little bit better on ice chips, continues to have a diffuse band of abdominal pain over her mid abdomen. 5/10, it is not traveling/radiating. No vomiting, was nauseous this morning which resolved with Zofran. No bloody bowel movements/this morning. Has had BMs since arrival. Review of Systems Review of Systems: All systems reviewed & are unremarkable except as noted in Subjective Physical Exam Physical Exam: General: A&Ox3. NAD. Cooperative. Appears fatigued,. HEENT: Atraumatic, normocephalic. Vision/hearing grossly intact. Pulm: CTAB A&P. -wheezes, -rales, -rhonchi. Symmetrical chest rise. No increased work of breathing. No respiratory distress. Cardiac: RRR, +sm -rg. Radial pulses intact and symmetrical. Abdominal: Diffusely midly tender across left to right mid abdomen without rebound or focal tenderness. No guarding. BS present Results & Data Results & Data ([facility]) Vital Signs (Past 12 Hours) Vital Signs Temp Pulse Resp BP Pulse Ox O2 Del Method 03/23/22 08:20 36.8 C 74 16 107/66 98 03/22/22 22:34 36.8 C 73 14 105/57 L 99 Room Air PG Care Time/CCT Total # of Minutes Spent Total Time Spent with Patient: Total time spent is greater than 50% in coordination of care (as documented) at patient's floor/unit and/or counseling patient: Coding Level of Care Code 37058 Subseq Hosp Care Lvl 2 Diagnoses Ankylosing spondylitis M45.9 Psoriasis L40.9 Acute Crohn's disease with intestinal obstruction K50.912 Common migraine without aura G43.009
--- NOTE | 2022-03-23 13:32 | Gastroenterology Progress Note ---
Date of Service March 23, 2022 Assessment & Plan (1) Acute Crohn's disease with intestinal obstruction: Plan: Continue SoluMedrol 40 mg IV BID Planning to shorten interval of Avsola to every 6 weeks, and increase dose to 10 mg/kg Continue MTX to 15 mg by mouth weekly Continue Folic Acid 1 mg by mouth daily Advance diet as tolerated Admission and Anticipated Discharge Date Admission Date: March 22, 2022 Subjective Feeling much better today. Asking for "at least some liquids." She states that she has had some small passage of stool and has passed gas. States her RLQ abdominal pain is improving. Denies any fevers, chills, nausea or vomiting now. No further complaints. Review of Systems Review of Systems: All systems reviewed & are unremarkable except as noted in Subjective Physical Exam Constitutional: WD/WN, vitals as above Respiratory: normal respiratory effort, lungs clear to auscultation Cardiovascular: RRR, no murmur, no edema Gastrointestinal (Abdomen): normal bowel sounds, soft, nontender, no hepatosplenomegaly Skin: no rashes, warm and dry Psychiatric: A+Ox3, euthymic affect Results & Data Results & Data ([facility]) Vital Signs (Past 12 Hours) Vital Signs Temp Pulse Resp BP Pulse Ox 03/23/22 08:20 36.8 C 74 16 107/66 98 PG Care Time/CCT Total # of Minutes Spent Total Time Spent with Patient: Total time spent is greater than 50% in coordination of care (as documented) at patient's floor/unit and/or counseling patient: Coding Level of Care Code 33859 Subseq Hosp Care Lvl 3 Diagnoses Acute Crohn's disease with intestinal obstruction K50.912
[2022-03-24 06:11] LABS: Basophils # (auto) 0.01 K/uL (0-0.2); Basophils % (auto) 0.1 %; Hematocrit (blood only) 35.7 % (34.1-44.9); Hemoglobin 11.9 g/dl (12.0-16.0); Immature Granulocytes # (auto) 0.05 K/uL (0.00-0.02); Immature Granulocytes % (auto) 0.4 %; Lymphocytes # (auto) 2.36 K/uL (1.2-3.4); Lymphocytes % (auto) 20.7 %; Mean Corpuscular Hemoglobin 28.1 pg (25.0-34.0); Mean Corpuscular Hgb Conc 33.3 g/dL (32.0-36.0); Mean Corpuscular Volume 84.2 fL (80.0-100.0); Mean Platelet Volume 10.4 fL (9.4-12.3); Monocytes % (auto) 6.1 %; Neutrophils % (auto) 72.7 %; Platelet Count 238 K/uL (130-400); RDW Coefficient of Variation 12.5 % (11.5-14.5); RDW Standard Deviation 37.9 fL (36.4-46.3); Red Blood Count 4.24 M/uL (3.93-5.22); White Blood Count 11.42 K/ul (4.8-10.8)
--- NOTE | 2022-03-24 06:32 | Gastroenterology Progress Note ---
Date of Service March 24, 2022 Assessment & Plan (1) Acute Crohn's disease with intestinal obstruction: Plan: Plan for discharge today if she tolerates Breakfast. Start Prednisone taper at 40 mg by mouth daily for 1 week, then decrease by 5 mg weekly for 8 week total taper. Planning to shorten interval of Avsola to every 6 weeks, and increase dose to 10 mg/kg Continue MTX to 15 mg by mouth weekly Continue Folic Acid 1 mg by mouth daily Advance diet as tolerated Admission and Anticipated Discharge Date Admission Date: March 22, 2022 Subjective Feeling well this AM. States that she is moving her bowels and has passed gas. Feels much better than on arrival. She tolerated PO intake last night. She denies any fevers, chills, nausea, vomiting, diarrhea, hematemesis, melena or hematochezia. No further complaints. Review of Systems Review of Systems: All systems reviewed & are unremarkable except as noted in HPI & below Physical Exam Constitutional: WD/WN, vitals as above Respiratory: normal respiratory effort, lungs clear to auscultation Cardiovascular: RRR, no murmur, no edema Gastrointestinal (Abdomen): normal bowel sounds, soft, nontender, no hepatosplenomegaly Results & Data Results & Data ([facility]) Vital Signs (Past 12 Hours) Vital Signs Temp Pulse Resp BP Pulse Ox O2 Del Method 03/23/22 22:31 36.8 C 66 14 100/65 98 Room Air PG Care Time/CCT Total # of Minutes Spent Total Time Spent with Patient: Total time spent is greater than 50% in coordination of care (as documented) at patient's floor/unit and/or counseling patient: Coding Level of Care Code 89001 Subseq Hosp Care Lvl 3 Diagnoses Acute Crohn's disease with intestinal obstruction K50.912
[2022-03-24 06:48] LABS: BUN Creatinine Ratio 24.6 (10-20); Calcium 8.6 mg/dl (8.5-10.1); Est GFR (African American) 145.2 ml/min; Est GFR (Non-African American) 125.3 ml/min; Potassium 4.2 mmol/L (3.5-5.1)
[2022-03-24] MEDS: PANTOprazole 40 MG TAB PO SCH (08:40)
[2022-03-24] MEDS: FOLIC ACID 1 MG TAB PO SCH (08:40)
[2022-03-24] MEDS: CHOLECALCIFEROL 1,000 UNITS 25 MCG TAB PO SCH (08:40)
[2022-03-24] MEDS: methylPREDNISolone 40 MG in SYRINGE 0 ML IV SCH (08:40)
--- NOTE | 2022-03-24 12:20 | Discharge Summary ---
Date of Service March 24, 2022 Principal Diagnosis Acute Crohn's ileocolitis flare Discharge Exam General: A&Ox3. NAD. Cooperative. Appears fatigued,. HEENT: Atraumatic, normocephalic. Vision/hearing grossly intact. Pulm: CTAB A&P. -wheezes, -rales, -rhonchi. Symmetrical chest rise. No increased work of breathing. No respiratory distress. Cardiac: RRR, +sm -rg. Radial pulses intact and symmetrical. Abdominal: Minimally tender across left to right mid abdomen without rebound or focal tenderness, greatly improved from prior. No guarding. BS present Discharge Data Allergies Allergy/AdvReac Type Severity Reaction Status Date / Time No Known Allergies Allergy Verified 03/22/22 01:55 Consultations 03/22/22 05:48 ED Decision to Admit Stat 03/22/22 12:06 Consult Gastroenterology Routine Ordered Studies 03/22/22 01:42 CT abd pelvis IV con only Urgent Hospital Course (1) Ankylosing spondylitis: Lizeth is a 31-year-old female with history of Crohn's on Remicade who presented to the ER with abdominal pain, nausea, and vomiting and concern for a Crohn's flare. He has a history of prior bowel obstructions.On ER evaluation CT of the abdomen shows moderate to severe bowel wall thickening involving the terminal ileum progressive from prior, consistent with ileitis with known Crohn's disease. Thickened terminal ileum results and transition point with distal small bowel obstruction. She did well, was having bowel movements day prior to and day of discharge. Was tolerating a regular diet with minimal pain at time of discharge To do as outpatient: 1. Complete prednisone taper, 40 mg decrease by 5milligrams every 7 days 2. Avsola increased to 10mpk, frequency increased to every 6 weeks from every 8 weeks per GI 3. Continue methotrexate weekly on Mondays 4. Follow-up to GI, follow-up to PCP Small bowel obstruction CT A/P: 1. Moderate to severe bowel wall thickening involving the terminal ileum which has progressed in the interval. This is consistent with an ileitis in the setting of the patient's known Crohn's disease. 2. This thickened terminal ileum results in the transition point for the distal small bowel obstruction.3. Small amount of ascites. 4. Questionable thickening of the colon may be due to underdistention.5. Normal appendix. Made n.p.o., diet progressed as tolerated. Tolerating regular diet at discharge Morphine for breakthrough pain PRN -No nausea day of discharge with Zofran -Had BMs since admission, was having BM day of discharge without difficulty Crohn's disease with acute flare Progressive since prior imaging - CT-A/P: as noted Last seen by GI 10/23/2021, continued on Remicade/Protonix and scheduled for colonoscopy next month GI consulted, recommended steroids, methotrexate, biologic treatment as below Prednisone taper 40 mg daily decrease by 5 every 7 days Continue methotrexate 15 mg by mouth weekly, Avsola interval decrease from 8 every 6 weeks per GI. Appreciate recommendations. Progressed well to regular diet, discharged to continue treatments as noted Ankylosing spondylitis - Remicaid helps with this as well. -Tx as above No acute interventions for this at this time Migraine without aura May use triptan as needed - No headache at time of admission DVT: SCDs Diet: NPO Dispo: MEd/Surg (2) Psoriasis: (3) Acute Crohn's disease with intestinal obstruction: (4) Common migraine without aura: Total Time Total Time Spent Total Time Spent (In Minutes): Time spend day of discharge 31 minutes including direct patient care, documentation, review of labs and images, and coordination of care. 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 You clinically improved on steroids. You have been prescribed a steroid taper. Please take prednisone 40 mg daily, and decrease by 5 mg once weekly. Overall this taper should take 8 weeks. Please continue taking cetraxate 15 mg by mouth weekly at this time. Your Avsola dosing interval has been decreased. Please take Avsola every 6 weeks, and increase the dose to 10 mg/kg as directed by GI. 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 To be seen for reevaluation by your PCP within 1 to 2 weeks. If you develop any new or worsening symptoms including fever, chills, sweats, chest pain, chest pressure, difficulty breathing, uncontrolled nausea/vomiting, rash, wheezing, passing out or nearly passing out, bleeding, black/bloody bowel movements, or other new or concerning symptoms please call your primary care physician, or call 911 for re-evaluation in the emergency department if you are very concerned. Pending Studies at Discharge: No Stand-Alone Forms: [facility] [employer], Smoking Cessation Medications and DC Order Prescriptions: New prednisone 10 mg tablet See Rx Instructions .ROUTE .COMPLEX Qty: 126 0RF Rx Instructions: Take 40mg (4 tabs) daily. Decrease daily dose by 5mg (0.5tab) every 7 days. Total taper course 8 weeks. Continued folic acid 1 mg Tablet 1 mg PO QAM rizatriptan 5 mg Tablet,Disintegrating 5 mg PO UD PRN (Reason: Migraine Headache) ondansetron HCl 4 mg tablet 4 mg PO TID PRN (Reason: NAUSEA/VOMITING) pantoprazole 40 mg tablet,delayed release (DR/EC) 40 mg PO DAILY cholecalciferol (vitamin D3) [Vitamin D3] 25 mcg (1,000 unit) Capsule 25 mcg PO DAILY Changed Inflectra 100 mg recon soln See Rx Instructions .ROUTE .COMPLEX Qty: 3 6RF Rx Instructions: 10 mg/kg intravenously Q6WK; Discharge Orders: Discharge Order (Routine); Ordered 03/24/22 Ordered By: Salty Arreola Admission Data Admit Date/Time: 03/22/22 08:19 Attending Provider: Salty Arreola Admit Provider: Salty Arreola Primary Care Provider: Wally Redman Other Providers: Wes Ibarra ; Chuck Aggarwal Coding Level of Care Code D/C DAY MANAGEMENT >30 MINS Diagnoses Ankylosing spondylitis M45.9 Psoriasis L40.9 Acute Crohn's disease with intestinal obstruction K50.912 Common migraine without aura G43.009
== END 2022-03-24 12:37 | disposition home or self-care (01) | DRG 387 ==
LOC: ED 01:20 → EDINP 08:19 → 3W 12:05